=== PATIENT | male | born 1965 | race Caucasian/White ===

== ENCOUNTER → 2017-11-21 | Outpatient (CLI) | payer BC ==
--- NOTE | 2017-11-21 12:21 | RADIOLOGY REPORT (SQ) ---
EXAM DESCRIPTION: MRI PELVIS COMBO COMPLETED DATE/TIME: 11/21/2017 REASON FOR STUDY: DISEASE OF ANUS AND RECTUM (K62.9) K62.9 DISEASE OF ANUS AND RECTUM, UNSPECIFIED COMPARISON: Recent colonoscopy and biopsy results. TECHNIQUE: Sagittal, axial oblique, and coronal oblique T2-weighted images of the pelvis without con trast centered on the rectum. Axial images of the pelvis. Post contrast T1 sequences also performed . FINDINGS: BRIEF DESCRIPTION OF MASS: Polypoid convoluted appearance, cerebriform configuration. Rel atively well-circumscribed. Filling and mildly distending the lumen of the lower rectum. LOCATION OF TUMOR: low. 0-5 cm. DISTANCE FROM ANORECTAL JUNCTION TO LOWER POLE OF TUMOR: 0 cm. CIRCUMFERENTIAL LOCATION OF TUMOR: Lesion probably arises in the posterior rectum with broad stalk sp anning 5 - 7 o'clock. Fluid surrounds the remainder of the lesion, otherwise it from the bowel wall. LENGTH OF TUMOR: 4.5 cm. DISTANCE BETWEEN TUMOR AND MESORECTAL FASCIA: Limited assessment in the low rectum. No mesorectal fa scia involvement along the upper portion of the tumor. PATHOLOGIC LYMPH NODES: No. DESCRIPTION: Not applicable. EXTRAMURAL/VASCULAR INVASION: No. DESCRIPTION: Not applicable. INVASION OF PELVIC STRUCTURES: No. DESCRIPTION: Not applicable. IMPRESSION: Polypoid low rectal mass without extraluminal extension or regional pathologic lymph nod es. 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 TECHNICAL DOCUMENTATION: JOB ID: [id number] [employer]- All Rights Reserved Reading location - IP/workstation name: [email or web address]
== END ==
LOC: RAD 08:14
PROVIDERS: ATTEND Surgery
DX: K62.9 Disease of anus and rectum, unspecified (principal)
CPT/HCPCS: 82565; 72197; A9576

== ENCOUNTER 2017-12-28 08:15 | Day surgery (SDC) | payer BC ==
--- NOTE | 2017-12-21 10:44 | RADIOLOGY REPORT (SQ) ---
EXAM DESCRIPTION: CHEST PA/LATERAL COMPLETED DATE/TIME: 12/21/2017 10:37 am REASON FOR STUDY: PRE-OP COMPARISON: 08/02/2007 EXAM PARAMETERS: NUMBER OF VIEWS: two views TECHNIQUE: Digital Frontal and Lateral radiographic views of the chest acquired. RADIATION DOSE: NA LIMITATIONS: none FINDINGS: LUNGS AND PLEURA: No opacities, masses or pneumothorax. No pleural effusion. MEDIASTINUM AND HILAR STRUCTURES: No masses or contour abnormalities. HEART AND VASCULAR STRUCTURES: Heart normal size. No evidence for failure. BONES: No acute findings. HARDWARE: None in the chest. OTHER: No other significant finding. IMPRESSION: NO SIGNIFICANT RADIOGRAPHIC FINDING IN THE CHEST. TECHNICAL DOCUMENTATION: JOB ID: [id number] [employer]- All Rights Reserved Reading location - IP/workstation name: [email or web address]
[2017-12-21 10:52] LABS: HEMATOCRIT 44.6 % (37.9-51.0); HEMOGLOBIN 15.3 g/dL (13.5-17.0); MEAN CORPUSCULAR HEMOGLOBIN 33.5 pg (27.0-33.4); MEAN CORPUSCULAR HGB CONC 34.3 g/dL (32.0-36.0); MEAN CORPUSCULAR VOLUME 98 fl (80-97); PLATELET COUNT 192 10^3/uL (150-450); RED BLOOD COUNT 4.57 10^6/uL (4.35-5.55); WHITE BLOOD COUNT 6.6 10^3/uL (4.0-10.5)
[2017-12-21 11:20] LABS: ANION GAP 11 (5-19); BLOOD UREA NITROGEN 9 mg/dL (7-20); CALCIUM 9.6 mg/dL (8.4-10.2); CARBON DIOXIDE 28 mmol/L (22-30); CHLORIDE 103 mmol/L (98-107); GLUCOSE 85 mg/dL (75-110); POTASSIUM 4.8 mmol/L (3.6-5.0); SODIUM 141.7 mmol/L (137-145)
--- NOTE | 2017-12-21 13:03 | EKG REPORT ---
SEVERITY:- NORMAL ECG - SINUS RHYTHM : Confirmed by: Steve Gimenez MD 21-Dec-2017 13:02:23
[~2017-12-28 08:15] MED LIST: ACETAMINOPHEN 1,000 MG/100 ML RTUPB IV ONE; BUPIVACAINE HCL 0.25% /EPINEPHRINE INJ/PF 30 ML SDV ONE; BUPIVACAINE HCL 0.5 % INJ/PF 30 ML SDV ONE; CEFOXITIN SODIUM 2 GM in DEXTROSE 5%-WATER 100 ML IV PRN; DEXAMETHASONE SOD PHOSPHATE INJ 4 MG/1 ML VIAL ONE; FENTANYL CITRATE INJ/PF 250 MCG/5 ML AMPULE ONE; LACTATED RINGERS 1000 ML IV PRN; LIDOCAINE 0.5% INJ-PF (5 MG/ML) 50 ML SDV SUBCUT PRN; LIDOCAINE 2% INJ-PF (100 MG/5 ML) SYRINGE ONE; LIDOCAINE 2% JELLY 30 ML TUBE ONE; MIDAZOLAM 2 MG/2 ML INJ ONE; ONDANSETRON HCL INJ/PF 4 MG/2 ML SDV ONE; PROPOFOL INJ 200 MG/20 ML VIAL IV ONE
[2017-12-28] MEDS ORDERED: ALBUTEROL SULFATE 0.083% NEB 2.5 MG/3 ML AMPUL NEB ONE (09:10)
[2017-12-28] MEDS ORDERED: FENTANYL CITRATE INJ/PF 100 MCG/2 ML AMPUL IV PRN ×3 (11:41)
[2017-12-28] MEDS ORDERED: PROMETHAZINE HCL INJ 25 MG/1 ML VIAL IV PRN ×2 (11:41)
[2017-12-28] MEDS ORDERED: MORPHINE SULFATE 10 MG/ML INJ IV PRN ×2 (11:41→15:51)
[2017-12-28] MEDS ORDERED: MEPERIDINE HCL/PF INJ 25 MG/1 ML DISP.SYRIN IV PRN (11:41)
[2017-12-28] MEDS ORDERED: ONDANSETRON HCL INJ/PF 4 MG/2 ML SDV IV PRN ×2 (11:41→15:51)
[2017-12-28] MEDS ORDERED: DIPHENHYDRAMINE HCL 50 MG/ML VIAL IV PRN (11:41)
[2017-12-28] MEDS ORDERED: SUGAMMADEX SODIUM 200 MG/2 ML SDV IV ONE (13:20)
[2017-12-28] MEDS ORDERED: VECURONIUM BROMIDE INJ 10 MG VIAL IV ONE (14:46)
[2017-12-28] MEDS ORDERED: SUCCINYLCHOLINE CHLORIDE INJ 200 MG/10 ML VIAL ONE (14:49)
[2017-12-28] MEDS ORDERED: DEXTROSE 5%-LACTATED RINGERS 1,000 ML IV PRN (15:51)
[2017-12-28] MEDS ORDERED: HYDROCODONE BIT/HOMATROPINE 5-1.5 MG TABLET PO ONE (16:01)
[2017-12-28] MEDS ORDERED: PSYLLIUM SEED-SF 5.85 GM PACKET PO ONE (16:02)
--- NOTE | 2017-12-28 16:25 | Operative Report ---
Nonrecallable Operative Report DATE OF SURGERY: 12/28/17 PREOPERATIVE DIAGNOSIS: rectal tumor POSTOPERATIVE DIAGNOSIS: large rectal tumor OPERATION: Robot-assisted laparoscopic transanal minimally invasive excision of rectal tumor SURGEON: WILIAN CRUZ 1ST CARCASS SPLITTER: ZORAIDA SMITH TISSUE REMOVED OR ALTERED: Large rectal tumor, approximately 8 cm COMPLICATIONS: Unable to close the large mucosal defect due to size. ESTIMATED BLOOD LOSS: 200 cc PROCEDURE: Indication for the procedure: This is a 52-year-old male found to have a large rectal tumor extending from approximately the first valve of [place]ig[place] down to the dentate line. Patient was sent to ar for surgical excision. He underwent MRI testing, which confirmed that the tumor appeared to be confined to the mucosa, not extending through the rectal wall or involving the perirectal lymph nodes. Secondary to this, the patient qualified for transanal excision. This is certainly less morbid than abdominoperineal resection (which would have been necessary if this operation were a failure). Drains/implants: None. Procedure in detail: After informed consent was obtained, the patient was brought into the operating room and laid in the lithotomy position. The area of the rectum was prepped and draped in a normal sterile fashion. The robot was brought over the patient. The gel point TAMIS trocar was inserted into the rectum and sutured into place after adequate dilation of the sphincter was performed. The robotic trochars were placed into the gel point device. The robot was then brought over the patient and docked to the trochars. Instruments were inserted, and I assumed my position at the surgeon's console. Attention was turned to the evaluation of the large rectal tumor. The tumor was situated posteriorly. The tumor extended distally to the dentate line. The tumor was marked circumferentially, to ensure a 1 cm margin. Incision was created at the dentate line using electrocautery. The tumor was elevated anteriorly. Dissection was carried down to the perirectal fat. During the dissection, several rectal arteries were identified and cauterized using bipolar cautery. Hemostasis was insured. The tumor was excised from the colon and removed through the gel point device. The tumor was oriented and marked. Sutures marked both the proximal and left lateral margin. The gel point was reattached, the robot was re-docked, and inspection was undertaken. The defect extended from the dentate line up to the first valve of Griggs. Closure of the defect was attempted, however it markedly deformed the first valve of Griggs. I was concerned that it would cause obstructive symptoms. Secondary to this, the defect was left open. The robot was then undocked, the gel point was removed, and the procedure was concluded. All sponge, instrument, and needle counts were correct 2. Condition: Stable. Zoraida Smith PA-C was scrubbed and present the entirety of the procedure. She assisted with all portions of the procedure including insertion of the gel point, docking of the robot, exchanging of the robotic instruments, and removal of the tumor.
[2017-12-28] MEDS: DOCUSATE SODIUM 100 MG CAPSULE PO SCH (18:20)
[2017-12-28] MEDS: PSYLLIUM SEED-SF 5.85 GM PACKET PO SCH (19:21)
[2017-12-28] MEDS: CEFOXITIN SODIUM 2 GM in DEXTROSE 5%-WATER 100 ML IV SCH (21:14)
[2017-12-29 05:28] LABS: ABSOLUTE LYMPHOCYTES (AUTO) 0.8 10^3/uL (0.5-4.7); ABSOLUTE MONOCYTES (AUTO) 0.8 10^3/uL (0.1-1.4); ABSOLUTE NEUT (AUTO) 9.2 10^3/uL (1.7-8.2); BASOPHILS % (AUTO) 0.2 % (0-2); EOSINOPHILS % (AUTO) 0.1 % (0-6); HEMATOCRIT 40.1 % (37.9-51.0); HEMOGLOBIN 13.8 g/dL (13.5-17.0); LYMPHOCYTES % (AUTO) 7.8 % (13-45); MEAN CORPUSCULAR HEMOGLOBIN 33.3 pg (27.0-33.4); MEAN CORPUSCULAR HGB CONC 34.4 g/dL (32.0-36.0); MEAN CORPUSCULAR VOLUME 97 fl (80-97); MONOCYTES % (AUTO) 7.4 % (3-13); PLATELET COUNT 195 10^3/uL (150-450); RED BLOOD COUNT 4.14 10^6/uL (4.35-5.55); SEGMENTED NEUTROPHILS % (AUTO) 84.5 % (42-78); TOTAL CELLS COUNTED % (AUTO) 100 %; WHITE BLOOD COUNT 10.9 10^3/uL (4.0-10.5)
[2017-12-29 05:56] LABS: ALANINE AMINOTRANSFERASE 19 U/L (21-72); ALBUMIN 3.3 g/dL (3.5-5.0); ALKALINE PHOSPHATASE 47 U/L (38-126); ANION GAP 8 (5-19); ASPARTATE AMINO TRANSFERASE 15 U/L (17-59); BILIRUBIN,DIRECT 0.3 mg/dL (0.0-0.4); BILIRUBIN,TOTAL 0.9 mg/dL (0.2-1.3); BLOOD UREA NITROGEN 6 mg/dL (7-20); CALCIUM 8.9 mg/dL (8.4-10.2); CARBON DIOXIDE 27 mmol/L (22-30); CHLORIDE 105 mmol/L (98-107); GLUCOSE 111 mg/dL (75-110); POTASSIUM 4.2 mmol/L (3.6-5.0); SODIUM 139.8 mmol/L (137-145); TOTAL PROTEIN 5.9 g/dL (6.3-8.2)
[2017-12-29 08:01] VITALS: BP 119/62
[2017-12-29] MEDS: CEFOXITIN SODIUM 2 GM in DEXTROSE 5%-WATER 100 ML IV SCH (09:47)
[2017-12-29] MEDS: PSYLLIUM SEED-SF 5.85 GM PACKET PO SCH (09:47)
[2017-12-29] MEDS: DOCUSATE SODIUM 100 MG CAPSULE PO SCH (09:47)
--- NOTE | 2017-12-29 10:49 | PDOC DISCHARGE SUMMARY ---
General - Admit/Disc Date/PCP Admission Date/Primary Care Provider: MCKENNA FERNANDEZ Discharge Date: 12/29/17 - Discharge Diagnosis (1) Rectal tumor Is this a current diagnosis for this admission?: Yes - Additional Information Discharge Diet: As Tolerated Discharge Activity: Balance Activity w/Rest Home Medications: No Home Medications 12/21/17 History of Present Illness History of Present Illness: MARIE BRUNSON JR is a 52 year old male with a large posterior rectal tumor extending from the dentate line to the first valve of [place]. The patient presented for resection of this tumor. The patient was admitted to the hospital and underwent robotic assisted transanal tumor resection. The patient was taken to the floor in stable condition. Hospital Course Hospital Course: Patient went to the floor in stable condition. The patient did very well. The patient began tolerating a diet, ambulating, passing flatus, and urinating without difficulty. By 12/29/2017 the patient was doing well. The patient was not requiring any pain medication. Patient was completely afebrile, and his blood pressure/heart rate were normal. At this time it was felt that he had reached maximal hospital benefit and was fit for discharge. Physical Exam Vital Signs: Temp Pulse Resp BP Pulse Ox 99.0 F 76 15 119/62 97 12/29/17 08:01 12/29/17 08:01 12/29/17 08:01 12/29/17 08:01 12/29/17 08:01 Intake & Output 12/28/17 12/29/17 12/30/17 06:59 06:59 06:59 Intake Total 2600 Output Total 555 Balance 2045 Weight 62.6 kg Results Laboratory Results: 12/29/17 04:13 12/29/17 04:13 12/29/17 12/29/17 04:13 04:13 WBC 10.9 H RBC 4.14 L Hgb 13.8 Hct 40.1 MCV 97 MCH 33.3 MCHC 34.4 RDW 13.0 Plt Count 195 Seg Neutrophils % 84.5 H Lymphocytes % 7.8 L Monocytes % 7.4 Eosinophils % 0.1 Basophils % 0.2 Absolute Neutrophils 9.2 H Absolute Lymphocytes 0.8 Absolute Monocytes 0.8 Absolute Eosinophils 0.0 Absolute Basophils 0.0 Sodium 139.8 Potassium 4.2 Chloride 105 Carbon Dioxide 27 Anion Gap 8 BUN 6 L Creatinine 0.71 Est GFR ( Amer) > 60 Est GFR (Non-Af Amer) > 60 Glucose 111 H Calcium 8.9 Total Bilirubin 0.9 AST 15 L ALT 19 L Alkaline Phosphatase 47 Total Protein 5.9 L Albumin 3.3 L Impressions: Chest X-Ray 12/21/17 10:05 IMPRESSION: NO SIGNIFICANT RADIOGRAPHIC FINDING IN THE CHEST. Qualifiers - * PATIENT BEING DISCHARGED WITH ANY OF THE FOLLOWING DIAGNOSIS: No Plan Discharge Plan: Discharge home. Diet as tolerated. Activity as tolerated. Follow-up with me in 7-10 days. OTC Tylenol and Advil for pain. Call the office with any questions or concerns. Time Spent: Less than 30 Minutes
== END 2017-12-29 12:53 | disposition home or self-care (01) ==
LOC: OROUT 08:15 → 4N 17:25 → OROUT 12-29 12:53
PROVIDERS: ATTEND Surgery
DX: C20 Malignant neoplasm of rectum (principal); F17.210 Nicotine dependence, cigarettes, uncomplicated; Z01.818 Encounter for other preprocedural examination
CPT/HCPCS: 0184T; S2900; 36415; 71046; 80048; 80053; 85025; 85027; 86850; 86900; 86901; 88307; 902; 93005; 93010; J0131; J0330; J0694; J1100; J2001; J2250; J2405; J2704; J3010; J3490; J7120

== ENCOUNTER 2018-01-05 23:56 | Inpatient (IN) | payer BC ==
[2018-01-06] MEDS ORDERED: NORMAL SALINE 250 ML IV PRN (00:01)
--- NOTE | 2018-01-06 00:04 | ER Document Report ---
ED General - General Stated Complaint: BLEEDING RECTUM Time Seen by Provider: 01/06/18 00:01 Notes: Patient is a 52-year-old male who had a large rectal tumor resection 9 days ago who presents with bright red blood per rectum apparently for approximately last 12 hours. He was brought in by EMS for the the bleeding. Was apparently hypotensive in the field. Patient denies any symptoms other than brisk bleeding from his rectum. He denies any use of any anticoagulation. He has not had any bleeding up until the past 12 hours. He has not notified his surgeon regarding today's events. He denies any abdominal pain. No fever or constitutional symptoms. Nothing improves or worsens his symptoms. TRAVEL OUTSIDE OF THE [place] IN LAST 30 DAYS: No - Related Data Allergies/Adverse Reactions: No Known Allergies Allergy (Verified 12/28/17 08:48) Past Medical History - General Information source: Patient - Social History Smoking Status: Current Every Day Smoker Frequency of alcohol use: None Drug Abuse: None Lives with: Alone Family History: Reviewed & Not Pertinent - Past Medical History Cardiac Medical History: Denies: Hx Coronary Artery Disease, Hx Heart Attack, Hx Hypertension Pulmonary Medical History: Reports: Hx Pneumonia - WALKING PNA CHILD Denies: Hx Asthma, Hx Bronchitis, Hx COPD Neurological Medical History: Denies: Hx Cerebrovascular Accident, Hx Seizures Musculoskeletal Medical History: Denies Hx Arthritis - Immunizations Hx Diphtheria, Pertussis, Tetanus Vaccination: No Review of Systems - Review of Systems Notes: Constitutional: Negative for fever. HENT: Negative for sore throat. Eyes: Negative for visual changes. Cardiovascular: Negative for chest pain. Respiratory: Negative for shortness of breath. Gastrointestinal: Positive for bright red blood per rectum. Genitourinary: Negative for dysuria. Musculoskeletal: Negative for back pain. Skin: Negative for rash. Neurological: Negative for headaches, weakness or numbness. 10 point ROS negative except as marked above and in HPI. Physical Exam - Vital signs Vitals: Resp Pulse Ox 12 100 01/06/18 00:09 01/06/18 00:09 Interpretation: Hypotensive Notes: PHYSICAL EXAMINATION: GENERAL: Mild pallor, alert, oriented, appears in no overt distress HEAD: Atraumatic, normocephalic. EYES: Pupils equal round and reactive to light, extraocular movements intact, sclera anicteric, conjunctiva are normal. ENT: nares patent, oropharynx clear without exudates. Mildly dry mucous membranes. NECK: Normal range of motion, supple without lymphadenopathy LUNGS: Breath sounds clear to auscultation bilaterally and equal. No wheezes rales or rhonchi. HEART: Regular rate and rhythm without murmurs ABDOMEN: Soft, nontender, normoactive bowel sounds. No guarding, no rebound. No masses appreciated. Rectal: Large, bright red blood clots in between the buttocks, there is active bright red bleeding from the anus. EXTREMITIES: Normal range of motion, no pitting or edema. No cyanosis. NEUROLOGICAL: No focal neurological deficits. Moves all extremities spontaneously and on command. PSYCH: Normal mood, normal affect. SKIN: Warm, mild pallor Course - Re-evaluation Re-evalutation: 01/06/18 00:02 Patient presents with brisk right red per rectum after having a tumor resection from his colon by Dr. Diaz 9 days ago. Patient was hypotensive to 70s systolic in the field. Patient was given 1 g of tranexamic acid in the field by EMS on my order. The patient currently has a systolic blood pressure of 109. The patient will be given 2 units of uncrossed matched blood given his hypotension and brisk nature of what appears to be arterial bleeding. Labs will be sent. I have contacted Dr. Diaz and asked him to evaluate the patient. 01/06/18 01:01 Patient's hemoglobin is 9.8 although anticipate that it is far lower than this in actuality given the ongoing brisk nature of his bleed. He is continuing to bleed, going to the operating room with Dr. Diaz. - Vital Signs Vital signs: Temp Pulse Resp BP Pulse Ox 98.3 F 14 85/51 L 100 01/06/18 00:11 01/06/18 00:46 01/06/18 00:46 01/06/18 00:46 - Laboratory Result Diagrams: 01/05/18 23:21 01/05/18 23:21 Laboratory results interpreted by me: 01/05/18 01/05/18 01/06/18 23:21 23:21 00:05 RBC 2.91 L Hgb 9.8 L Hct 28.5 L MCV 98 H MCH 33.7 H Sodium 134.1 L Glucose 175 H Crossmatch See Detail Discharge - Discharge Clinical Impression: Rectal arterial hemorrhage Hypotension Qualifiers: Hypotension type: unspecified hypotension type Qualified Code(s): I95.9 - Hypotension, unspecified Condition: Fair Admitting Provider: Surgicalist Unit Admitted: OR Referrals: NATALYA COLON FNP [Primary Care Provider] - Follow up as needed
[2018-01-06 00:25] LABS: ABSOLUTE BASOPHILS # (AUTO) 0.1 10^3/uL (0.0-0.2); ABSOLUTE EOSINOPHILS # (AUTO) 0.2 10^3/uL (0.0-0.6); ABSOLUTE LYMPHOCYTES (AUTO) 2.2 10^3/uL (0.5-4.7); ABSOLUTE MONOCYTES (AUTO) 0.8 10^3/uL (0.1-1.4); ABSOLUTE NEUT (AUTO) 4.7 10^3/uL (1.7-8.2); BASOPHILS % (AUTO) 0.9 % (0-2); HEMATOCRIT 28.5 % (37.9-51.0); HEMOGLOBIN 9.8 g/dL (13.5-17.0); LYMPHOCYTES % (AUTO) 27.9 % (13-45); MEAN CORPUSCULAR HEMOGLOBIN 33.7 pg (27.0-33.4); MEAN CORPUSCULAR HGB CONC 34.4 g/dL (32.0-36.0); MEAN CORPUSCULAR VOLUME 98 fl (80-97); MONOCYTES % (AUTO) 10.5 % (3-13); PLATELET COUNT 312 10^3/uL (150-450); RED BLOOD COUNT 2.91 10^6/uL (4.35-5.55); RED CELL DISTRIBUTION WIDTH 13.1 % (11.5-14.0); SEGMENTED NEUTROPHILS % (AUTO) 58.7 % (42-78); TOTAL CELLS COUNTED % (AUTO) 100 %
[2018-01-06 00:41] LABS: ANION GAP 9 (5-19); BLOOD UREA NITROGEN 11 mg/dL (7-20); CALCIUM 8.4 mg/dL (8.4-10.2); CARBON DIOXIDE 23 mmol/L (22-30); CHLORIDE 102 mmol/L (98-107); GLUCOSE 175 mg/dL (75-110); POTASSIUM 3.8 mmol/L (3.6-5.0); SODIUM 134.1 mmol/L (137-145)
[2018-01-06] MEDS ORDERED: PROPOFOL INJ 200 MG/20 ML VIAL IV ONE (00:58)
--- NOTE | 2018-01-06 02:29 | PDOC H&P ---
History of Present Illness Admission Date/PCP: 01/06/18 01:18 MCKENNA FERNANDEZ Patient complains of: Rectal bleeding History of Present Illness: MARIE BRUNSON JR is a 52 year old male approximately 1 week status post transanal excision of a rectal tumor. The patient reports that since 12 noon today he has experienced bright red blood per rectum. It occurred on multiple times, and the patient was transported via EMS to the hospital. The patient reports weakness, palpitations, dizziness. Patient also reports rectal pressure. He reports that this began with having a bowel movement and straining. Past Medical History Cardiac Medical History: Denies: Coronary Artery Disease, Myocardial Infarction, Hypertension Pulmonary Medical History: Reports: Pneumonia - WALKING PNA CHILD Denies: Asthma, Bronchitis, Chronic Obstructive Pulmonary Disease (COPD) Neurological Medical History: Denies: Seizures Musculoskeltal Medical History: Denies: Arthritis Hematology: Denies: Anemia Past Surgical History Past Surgical History: Reports: Other - Transanal excision of a rectal tumor Social History Lives with: Alone Smoking Status: Current Every Day Smoker Frequency of Alcohol Use: Heavy Hx Recreational Drug Use: No Hx Prescription Drug Abuse: No Family History Family History: Reviewed & Not Pertinent Parental Family History Reviewed: Yes Children Family History Reviewed: Yes Sibling(s) Family History Reviewed.: Yes Medication/Allergy Home Medications: No Home Medications 12/21/17 Allergies/Adverse Reactions: No Known Allergies Allergy (Verified 12/28/17 08:48) Review of Systems Constitutional: PRESENT: fatigue, weakness. ABSENT: anorexia, chills, fever(s) Cardiovascular: PRESENT: palpitations. ABSENT: chest pain Respiratory: ABSENT: cough Gastrointestinal: PRESENT: constipation, hematochezia. ABSENT: abdominal pain, bloating, nausea, vomiting Genitourinary: ABSENT: dysuria Musculoskeletal: ABSENT: back pain Integumentary: ABSENT: pruritus, rash Neurological: PRESENT: dizziness. ABSENT: confusion, numbness, paresthesias Psychiatric: ABSENT: anxiety, depression Endocrine: ABSENT: cold intolerance, heat intolerance Hematologic/Lymphatic: ABSENT: easy bleeding, easy bruising Physical Exam Vital Signs: Temp Pulse Resp BP Pulse Ox 98.0 F 13 103/58 L 100 01/06/18 01:55 01/06/18 01:56 01/06/18 01:56 01/06/18 01:56 Intake & Output 09/01/05/18 01/06/18 06:59 06:59 06:59 Weight 61.235 kg General appearance: PRESENT: mild distress Head exam: PRESENT: atraumatic, normocephalic Eye exam: PRESENT: EOMI, PERRLA. ABSENT: scleral icterus Mouth exam: PRESENT: moist, neck supple Teeth exam: PRESENT: poor dentation Respiratory exam: PRESENT: clear to auscultation barrera. ABSENT: chest wall tenderness, rales, retraction, rhonchi Cardiovascular exam: PRESENT: tachycardia Pulses: PRESENT: normal radial pulses Vascular exam: PRESENT: pallor GI/Abdominal exam: PRESENT: soft. ABSENT: distended, firm, guarding, hernia, tenderness Rectal exam: PRESENT: normal rectal tone, other - Bright red blood per rectum with clots. Extremities exam: ABSENT: clubbing, pedal edema Musculoskeletal exam: ABSENT: deformity Neurological exam: PRESENT: alert, awake, oriented to person, oriented to place , oriented to time, oriented to situation, CN II-XII grossly intact. ABSENT: motor sensory deficit Psychiatric exam: ABSENT: agitated, anxious, depressed Focused psych exam: ABSENT: delusional Skin exam: ABSENT: cyanosis, erythema, jaundice Assessment & Plan - Diagnosis (1) Rectal arterial hemorrhage Is this a current diagnosis for this admission?: Yes - Plan Summary Plan Summary: This is a 52-year-old male status post transanal excision of a rectal tumor. The patient began to experience bright red rectal bleeding today at approximately 12 noon. The bleeding did not stop, and the patient presented for evaluation. On exam in the emergency department no bleeding source could be identified, however there was a copious amount of red blood in the rectum. Secondary to this, rectal exam under anesthesia was felt to be prudent. I have discussed the risks and benefits with the patient. We will proceed with rectal examination under anesthesia, possible colonoscopy. Informed consent obtained, and all questions answered.
[2018-01-06] MEDS ORDERED: FENTANYL CITRATE INJ/PF 100 MCG/2 ML AMPUL ONE (02:34)
[2018-01-06] MEDS ORDERED: MIDAZOLAM 2 MG/2 ML INJ ONE (02:34)
[2018-01-06] MEDS ORDERED: BUPIVACAINE HCL/DEX-WATER/PF 15 MG/2 ML AMPULE ONE (02:35)
[2018-01-06] MEDS ORDERED: MORPHINE SULFATE 10 MG/ML INJ IV PRN (03:14)
[2018-01-06] MEDS ORDERED: PROMETHAZINE HCL INJ 25 MG/1 ML VIAL IV PRN (03:14)
[2018-01-06] MEDS ORDERED: ONDANSETRON HCL INJ/PF 4 MG/2 ML SDV IV PRN ×2 (03:14→04:12)
[2018-01-06] MEDS ORDERED: FENTANYL CITRATE INJ/PF 100 MCG/2 ML AMPUL IV PRN ×3 (03:14)
[2018-01-06] MEDS ORDERED: DIPHENHYDRAMINE HCL 50 MG/ML VIAL IV PRN (03:14)
[2018-01-06] MEDS ORDERED: DEXTROSE 40% GEL 15 GM TUBE PO PRN ×2 (04:12)
[2018-01-06] MEDS ORDERED: DEXTROSE 50%-WATER 25 GM/50 ML DISP.SYRIN IV PRN ×2 (04:12)
[2018-01-06] MEDS ORDERED: GLUCAGON,HUMAN RECOMB 1 MG INJ SUBCUT PRN (04:12)
[2018-01-06] MEDS ORDERED: DEXTROSE 5%-LACTATED RINGERS 1,000 ML IV PRN (04:12)
[2018-01-06 06:25] LABS: ABSOLUTE BASOPHILS # (AUTO) 0.1 10^3/uL (0.0-0.2); ABSOLUTE EOSINOPHILS # (AUTO) 0.1 10^3/uL (0.0-0.6); ABSOLUTE LYMPHOCYTES (AUTO) 1.7 10^3/uL (0.5-4.7); ABSOLUTE MONOCYTES (AUTO) 0.8 10^3/uL (0.1-1.4); ABSOLUTE NEUT (AUTO) 6.7 10^3/uL (1.7-8.2); BASOPHILS % (AUTO) 0.6 % (0-2); EOSINOPHILS % (AUTO) 0.9 % (0-6); HEMATOCRIT 27.7 % (37.9-51.0); HEMOGLOBIN 9.6 g/dL (13.5-17.0); LYMPHOCYTES % (AUTO) 18.6 % (13-45); MEAN CORPUSCULAR HEMOGLOBIN 31.8 pg (27.0-33.4); MEAN CORPUSCULAR HGB CONC 34.5 g/dL (32.0-36.0); MONOCYTES % (AUTO) 8.4 % (3-13); PLATELET COUNT 196 10^3/uL (150-450); RED BLOOD COUNT 3.01 10^6/uL (4.35-5.55); SEGMENTED NEUTROPHILS % (AUTO) 71.5 % (42-78); TOTAL CELLS COUNTED % (AUTO) 100 %; WHITE BLOOD COUNT 9.4 10^3/uL (4.0-10.5)
[2018-01-06 06:27] LABS: MEAN CORPUSCULAR VOLUME 92 fl (80-97)
[2018-01-06 06:40] LABS: ALANINE AMINOTRANSFERASE 21 U/L (21-72); ALBUMIN 2.2 g/dL (3.5-5.0); ALKALINE PHOSPHATASE 39 U/L (38-126); ASPARTATE AMINO TRANSFERASE 12 U/L (17-59); BILIRUBIN,DIRECT 0.4 mg/dL (0.0-0.4); BILIRUBIN,TOTAL 0.7 mg/dL (0.2-1.3); BLOOD UREA NITROGEN 10 mg/dL (7-20); CALCIUM 7.4 mg/dL (8.4-10.2); CARBON DIOXIDE 23 mmol/L (22-30); CHLORIDE 110 mmol/L (98-107); GLUCOSE 91 mg/dL (75-110); POTASSIUM 4.6 mmol/L (3.6-5.0); SODIUM 135.9 mmol/L (137-145); TOTAL PROTEIN 4.4 g/dL (6.3-8.2)
[2018-01-06 06:59] LABS: ANION GAP 3 (5-19)
[2018-01-06] MEDS: DOCUSATE SODIUM 100 MG CAPSULE PO SCH ×3 (09:08→18:49)
--- NOTE | 2018-01-06 10:45 | Operative Report ---
Nonrecallable Operative Report DATE OF SURGERY: 01/06/18 PREOPERATIVE DIAGNOSIS: Lower GI bleeding POSTOPERATIVE DIAGNOSIS: 1. Massive lower GI bleeding with large amount of clots within the colon. No active bleeding site identified. Surgical site appeared to be healing well with no signs of active blood loss. 2. Multiple, large colon polyps throughout the colon extending from the rectum to the descending colon. Greater than 20 identified. At least 3 very large, pedunculated polyps noted. OPERATION: Colonoscopy to the cecum SURGEON: WILIAN CRUZ ANESTHESIA: Spinal TISSUE REMOVED OR ALTERED: None COMPLICATIONS: Large amount of old blood within the colon. No active bleeding identified. ESTIMATED BLOOD LOSS: Large amount of old blood. PROCEDURE: Drains/implants: Surgifoam in the rectum. Procedure in detail: After informed consent was obtained from the patient, he was brought into the operating room. Spinal anesthesia was administered. The patient was placed in lithotomy position. The colonoscope was inserted into the rectum. A large amount of old blood with clots were present. This was irrigated copiously and suctioned to remove all clot. Once this was adequately performed, to assist with visualization, the rectum was examined. No active bleeding could be identified at the surgical site. The mucosal edges were without obvious visible vessel or active bleeding. Copious irrigation was used to elicit any bleeding. No bleeding was identified. Once this was confirmed, attention was turned to performing of the remainder of the colonoscopy. The colonoscope was inserted up the sigmoid colon, descending colon, across the transverse colon, down the ascending colon, and into the cecum. He had not undergone a bowel prep, and the cecum had retained stool within it. This did inhibit some of our visualization, however copious irrigation was used and a large portion of the mucosa was visualized. The scope was withdrawn, circumferentially noting the mucosa. The scope was withdrawn past the ascending colon, transverse colon, descending colon, sigmoid colon, and into the rectum. There were multiple moderate sized polyps found throughout the colon, I estimate 40-50. There were 3 separate large pedunculated polyps, 2 within the descending/sigmoid colon and one within the ascending colon. These were not removed due to the patient's relative instability from blood loss. As the scope was withdrawn, no active bleeding could be identified throughout the colon. Once the rectum was reached, further irrigation was performed. Still, no active bleeding could be identified. A retroflexion maneuver was performed. This did not reveal any obvious rectal bleeding. Once this was confirmed, the scope was removed. Surgifoam was packed into the rectum to aid with hemostasis. At this time, the procedure was concluded. All sponge, instrument, and needle counts were correct 2. Condition: Fair.
--- NOTE | 2018-01-06 13:37 | Progress Note ---
Provider Note Provider Note: Patient seen today. His was present. Discussed results of colonoscopy including multiple polyps identified. Discussed repeat colonoscopies versus colon resection with the patient. He and his wish to think about this decision. The patient reports no further bleeding. I will advance his diet today. The patient has been taking Aleve at home for pain twice per day. I recommended he take only Tylenol. Patient has expressed good understanding. I will reevaluate him tomorrow for possible discharge.
[2018-01-06] MEDS ORDERED: ACETAMINOPHEN 325 MG TABLET PO PRN (20:58)
[2018-01-07 05:42] LABS: HEMATOCRIT 24.6 % (37.9-51.0); HEMOGLOBIN 8.5 g/dL (13.5-17.0); MEAN CORPUSCULAR HEMOGLOBIN 31.7 pg (27.0-33.4); MEAN CORPUSCULAR HGB CONC 34.4 g/dL (32.0-36.0); MEAN CORPUSCULAR VOLUME 92 fl (80-97); PLATELET COUNT 157 10^3/uL (150-450); RED BLOOD COUNT 2.67 10^6/uL (4.35-5.55); RED CELL DISTRIBUTION WIDTH 15.6 % (11.5-14.0); WHITE BLOOD COUNT 6.7 10^3/uL (4.0-10.5)
--- NOTE | 2018-01-07 07:20 | PDOC DISCHARGE SUMMARY ---
General - Admit/Disc Date/PCP Admission Date/Primary Care Provider: 01/06/18 01:18 MCKENNA FERNANDEZ Discharge Date: 01/07/18 - Discharge Diagnosis (1) Rectal arterial hemorrhage Is this a current diagnosis for this admission?: Yes - Additional Information Resuscitation Status: Full Code Discharge Diet: As Tolerated Discharge Activity: Balance Activity w/Rest Home Medications: No Home Medications 12/21/17 History of Present Illness History of Present Illness: MARIE BRUNSON JR is a 52 year old male approximately 1 week status post transanal excision of a rectal tumor. The patient reports that since 12 noon today he has experienced bright red blood per rectum. It occurred on multiple times, and the patient was transported via EMS to the hospital. The patient reported weakness, palpitations, dizziness. Patient also reported rectal pressure. He reports that this began with having a bowel movement and straining. He was taking Aleve twice per day at home. Hospital Course Hospital Course: The pt was admitted to the hospital and colonoscopy was performed. A large amount of blood was found within the colon, but no active bleeding was identified. The pt was sent to the floor and no further bleeding was noted. By he was ambulating, tolerating a diet, and there was no bleeding identified. At this time he has reached maximal hospital benefit and is fit for discharge. Physical Exam Vital Signs: Temp Pulse Resp BP Pulse Ox 98.6 F 76 18 100/53 L 100 01/07/18 00:00 01/07/18 00:00 01/07/18 00:00 01/07/18 00:00 01/07/18 00:00 Intake & Output 01/06/18 01/07/18 01/08/18 06:59 06:59 06:59 Intake Total 1100 1736 Balance 1100 1736 Weight 62 kg 64.4 kg Results Laboratory Results: 01/07/18 04:35 01/07/18 04:35 01/07/18 01/07/18 04:35 04:35 WBC 6.7 RBC 2.67 L Hgb 8.5 L Hct 24.6 L MCV 92 MCH 31.7 MCHC 34.4 RDW 15.6 H Plt Count 157 Sodium Cancelled Potassium Cancelled Chloride Cancelled Carbon Dioxide Cancelled Anion Gap Cancelled BUN Cancelled Creatinine Cancelled Est GFR ( Amer) Cancelled Est GFR (Non-Af Amer) Cancelled Glucose Cancelled Calcium Cancelled Total Bilirubin Cancelled AST Cancelled ALT Cancelled Alkaline Phosphatase Cancelled Total Protein Cancelled Albumin Cancelled Qualifiers - * PATIENT BEING DISCHARGED WITH ANY OF THE FOLLOWING DIAGNOSIS: No Plan Discharge Plan: d/c home. diet as tolerated. activity: nonstrenuous. f/u in one week at [facility]. Time Spent: Less than 30 Minutes
[2018-01-07 08:33] VITALS: BP 100/53
== END 2018-01-07 08:15 | disposition home or self-care (01) | DRG 316 ==
LOC: ER 23:56 → EH 01-06 01:18 → 4W 01-06 04:58
PROVIDERS: ADMIT Surgery; ATTEND Surgery
PROC: 0DJD8ZZ Inspection of Lower Intestinal Tract, Via Natural or Artificial Opening Endoscopic (ICD-10-PCS; 2018-01-06)
PROC: 3E1H88Z Irrigation of Lower GI using Irrigating Substance, Via Natural or Artificial Opening Endoscopic (ICD-10-PCS; 2018-01-06)
PROC: 30233N1 Transfusion of Nonautologous Red Blood Cells into Peripheral Vein, Percutaneous Approach (ICD-10-PCS; principal; 2018-01-06 02:00)
DX: R58 Hemorrhage, not elsewhere classified (principal); I95.9 Hypotension, unspecified; K63.5 Polyp of colon; F17.210 Nicotine dependence, cigarettes, uncomplicated; Z98.890 Other specified postprocedural states
CPT/HCPCS: 36415; 36430; 45378; 80048; 80053; 811; 85025; 85027; 86850; 86900; 86901; 86920; 94640; 99285; J2250; J2704; J3010; J3490; P9016

== ENCOUNTER 2018-03-29 10:03 | Day surgery (SDC) | payer BC ==
[~2018-03-29 10:03] MED LIST changes: -ACETAMINOPHEN 1,000 MG/100 ML RTUPB IV ONE; -BUPIVACAINE HCL 0.25% /EPINEPHRINE INJ/PF 30 ML SDV ONE; -BUPIVACAINE HCL 0.5 % INJ/PF 30 ML SDV ONE; -CEFOXITIN SODIUM 2 GM in DEXTROSE 5%-WATER 100 ML IV PRN; -DEXAMETHASONE SOD PHOSPHATE INJ 4 MG/1 ML VIAL ONE; -FENTANYL CITRATE INJ/PF 250 MCG/5 ML AMPULE ONE; -LIDOCAINE 2% INJ-PF (100 MG/5 ML) SYRINGE ONE; -LIDOCAINE 2% JELLY 30 ML TUBE ONE; -MIDAZOLAM 2 MG/2 ML INJ ONE; -ONDANSETRON HCL INJ/PF 4 MG/2 ML SDV ONE; -PROPOFOL INJ 200 MG/20 ML VIAL IV ONE
[2018-03-29] MEDS ORDERED: ALBUTEROL SULFATE 0.083% NEB 2.5 MG/3 ML AMPUL NEB ONE (11:21)
[2018-03-29] MEDS ORDERED: PROPOFOL INJ 200 MG/20 ML VIAL IV ONE (13:34)
[2018-03-29] MEDS ORDERED: ONDANSETRON HCL INJ/PF 4 MG/2 ML SDV IV PRN (14:09)
[2018-03-29] MEDS ORDERED: FENTANYL CITRATE INJ/PF 100 MCG/2 ML AMPUL IV PRN ×3 (14:09)
--- NOTE | 2018-03-29 16:17 | Discharge Summary ---
Discharge Summary (SDC) - Discharge Final Diagnosis: History of rectal cancer. Multiple colon polyps. Date of Surgery: 03/29/18 Discharge Date: 03/29/18 Condition: Stable Forms: ASU Anesthesia D/C Instruction, Discharge POC-Surgical Service Treatment or Instructions: Discharge home. Diet as tolerated. Activity, nonstrenuous. Follow-up with me in 7-10 days. Referrals: NATALYA COLON FNP [Primary Care Provider] - WILIAN CRUZ MD [ACTIVE STAFF] - Discharge Diet: As Tolerated Respiratory Treatments at Home: Deep Breathing/Coughing, Incentive Spirometer Discharge Activity: Balance Activity w/Rest Home Care Assistance: None Needed Report the Following to Your Physician Immediately: Shortness of Breath, Nausea , Vomiting, Increase in Pain, Fever over 101 Degrees, Unusual Bleeding, Redness , Swelling, Warmth
--- NOTE | 2018-03-29 16:26 | Operative Report ---
Nonrecallable Operative Report DATE OF SURGERY: 03/29/18 PREOPERATIVE DIAGNOSIS: 1. History of rectal cancer. 2. Known multiple colon polyps. POSTOPERATIVE DIAGNOSIS: 1. History of rectal cancer. 2. Multiple large colon polyps. 3. No sign of rectal cancer persistence or recurrence. OPERATION: 1. Flexible sigmoidoscopy to approximately 70 cm. 2. Snare polypectomy of multiple large rectal polyps. 3. Hot biopsy multiple small rectal polyps. 4. Cold biopsy of previous surgical site in the rectum. 5. Aubree ink injection of large colon polyp at approximately 15-20 cm. SURGEON: WILIAN CRUZ ANESTHESIA: LMAC TISSUE REMOVED OR ALTERED: 1 multiple colon polyps removed, approximately 40. 2. Random rectal biopsies at previous surgical site COMPLICATIONS: None apparent ESTIMATED BLOOD LOSS: Minimal PROCEDURE: Procedure in detail: After informed consent was obtained, the patient was brought to the operating room laid in the left lateral decubitus position the colonoscope was inserted up the rectum, sigmoid colon, and into the descending colon. The scope was advanced to approximately 70 cm. There were multiple large colon polyps scattered throughout the rectum, sigmoid colon, and descending colon. The scope was then withdrawn, circumferentially noting the mucosa. The prep was very good. The scope was withdrawn down the descending colon. The polyps that were identified in the descending colon were left in situ, secondary to the fact that the patient will undergo total abdominal colectomy in the near future. There was a very large polyp at approximately 15- 20 cm. It was marked with circumferential injection of Aubree ink. The scope was then withdrawn down the rectum. Multiple polyps were identified. Large polyps were removed via hot polypectomy, smaller polyps were removed via hot biopsy forceps. A total of 40 polyps were removed in the rectum and sigmoid colon. In the distal rectum, the previous surgical site was identified. There was no evidence of recurrent adenomatous disease or cancer. Random biopsies were taken at the surgical site. The scope was then removed from the patient, and the procedure was concluded. All sponge, instrument, needle counts were correct x2. Condition: Stable.
[2018-03-29 16:35] VITALS: BP 156/92
== END 2018-03-29 16:16 | disposition home or self-care (01) ==
LOC: OROUT 10:03
PROVIDERS: ATTEND Surgery
DX: Z12.11 Encounter for screening for malignant neoplasm of colon (principal); D12.7 Benign neoplasm of rectosigmoid junction; Z85.048 Personal history of other malignant neoplasm of rectum, rectosigmoid junction, and anus; Z86.010 Personal history of colon polyps; F17.210 Nicotine dependence, cigarettes, uncomplicated; Z08 Encounter for follow-up examination after completed treatment for malignant neoplasm
CPT/HCPCS: 45335; 45338; 45333; 88305 ×2; J2704; 811

== ENCOUNTER 2018-05-16 07:30 | Inpatient (IN) | payer BC ==
--- NOTE | 2018-06-07 08:58 | EKG REPORT ---
SEVERITY:- NORMAL ECG - SINUS RHYTHM : Confirmed by: Rosy Hennessy MD 07-Jun-2018 08:57:58
--- NOTE | 2018-06-07 09:52 | RADIOLOGY REPORT (SQ) ---
EXAM DESCRIPTION: CHEST PA/LATERAL COMPLETED DATE/TIME: 06/07/2018 9:34 am REASON FOR STUDY: SURGICAL PRE OP COMPARISON: 08/02/2007 EXAM PARAMETERS: NUMBER OF VIEWS: two views TECHNIQUE: Digital Frontal and Lateral radiographic views of the chest acquired. RADIATION DOSE: NA LIMITATIONS: none FINDINGS: LUNGS AND PLEURA: Scarring in the lung apices. There is hyperexpansion. No consolidation or effusions. No pneumothorax. MEDIASTINUM AND HILAR STRUCTURES: No masses or contour abnormalities. HEART AND VASCULAR STRUCTURES: Heart normal size. No evidence for failure. BONES: No acute findings. HARDWARE: None in the chest. OTHER: No other significant finding. IMPRESSION: Hyperexpansion. Scarring in the apices. No acute findings. TECHNICAL DOCUMENTATION: JOB ID: [id number] [employer]- All Rights Reserved Reading location - IP/workstation name: [email or web address]
[2018-06-07 09:58] LABS: HEMATOCRIT 42.7 % (37.9-51.0); HEMOGLOBIN 14.4 g/dL (13.5-17.0); MEAN CORPUSCULAR HEMOGLOBIN 29.3 pg (27.0-33.4); MEAN CORPUSCULAR HGB CONC 33.7 g/dL (32.0-36.0); MEAN CORPUSCULAR VOLUME 87 fl (80-97); PLATELET COUNT 214 10^3/uL (150-450); RED CELL DISTRIBUTION WIDTH 18.1 % (11.5-14.0); WHITE BLOOD COUNT 7.1 10^3/uL (4.0-10.5)
[2018-06-07 10:26] LABS: ANION GAP 10 (5-19); BLOOD UREA NITROGEN 10 mg/dL (7-20); CALCIUM 9.5 mg/dL (8.4-10.2); CARBON DIOXIDE 27 mmol/L (22-30); CHLORIDE 103 mmol/L (98-107); GLUCOSE 89 mg/dL (75-110)
[2018-06-14] MEDS ORDERED: LACTATED RINGERS 1000 ML IV PRN (05:00)
[2018-06-14] MEDS ORDERED: IBUPROFEN 800 MG in NORMAL SALINE 250 ML IV PRN (05:00)
[2018-06-14] MEDS ORDERED: LIDOCAINE 0.5% INJ-PF (5 MG/ML) 50 ML SDV SUBCUT PRN (05:00)
[2018-06-14] MEDS ORDERED: CEFOXITIN SODIUM 2 GM in DEXTROSE 5%-WATER 100 ML IV PRN (05:00)
[2018-06-14] MEDS ORDERED: EPHEDRINE SULFATE INJ 50 MG/1 ML AMPULE ONE (07:00)
[2018-06-14] MEDS ORDERED: HYDROMORPHONE HCL INJ/PF 2 MG/ML AMPULE ONE (07:00)
[2018-06-14] MEDS ORDERED: ACETAMINOPHEN 1,000 MG/100 ML RTUPB IV ONE (07:00)
[2018-06-14] MEDS ORDERED: FENTANYL CITRATE INJ/PF 250 MCG/5 ML AMPULE ONE (07:00)
[2018-06-14] MEDS ORDERED: PROPOFOL INJ 200 MG/20 ML VIAL IV ONE (07:00)
[2018-06-14] MEDS ORDERED: DEXMEDETOMIDINE INJ 80 MCG/20 ML VIAL IV ONE (07:00)
[2018-06-14] MEDS ORDERED: MIDAZOLAM 2 MG/2 ML INJ ONE (07:00)
[2018-06-14] MEDS ORDERED: BUPIVACAINE HCL 0.25 % INJ/PF (2.5 MG/1 ML) 30 ML VIAL ONE (07:26)
[2018-06-14] MEDS ORDERED: MORPHINE SULFATE 10 MG/ML INJ IV PRN ×2 (11:32→12:49)
[2018-06-14] MEDS ORDERED: PROMETHAZINE HCL INJ 25 MG/1 ML VIAL IV PRN ×2 (11:32)
[2018-06-14] MEDS ORDERED: ONDANSETRON HCL INJ/PF 4 MG/2 ML SDV IV PRN ×2 (11:32→12:49)
[2018-06-14] MEDS ORDERED: DIPHENHYDRAMINE HCL 50 MG/ML VIAL IV PRN (11:32)
[2018-06-14] MEDS ORDERED: FENTANYL CITRATE INJ/PF 100 MCG/2 ML AMPUL IV PRN ×3 (11:32)
[2018-06-14] MEDS ORDERED: MEPERIDINE HCL/PF INJ 25 MG/1 ML DISP.SYRIN IV PRN (11:32)
[2018-06-14] MEDS ORDERED: ONDANSETRON HCL INJ/PF 4 MG/2 ML SDV ONE (11:38)
[2018-06-14] MEDS ORDERED: SUCCINYLCHOLINE CHLORIDE INJ 200 MG/10 ML VIAL ONE (11:38)
[2018-06-14] MEDS ORDERED: PHENYLEPHRINE HCL INJ/PF 10 MG/1 ML SDV ONE (11:38)
[2018-06-14] MEDS ORDERED: GLYCOPYRROLATE 1 MG/5 ML SYRINGE ONE (11:38)
[2018-06-14] MEDS ORDERED: METOCLOPRAMIDE HCL INJ/PF 10 MG/2 ML SDV ONE (11:38)
[2018-06-14] MEDS ORDERED: LIDOCAINE 2% INJ-PF (20 MG/ML) 2 ML AMPUL ONE (11:38)
[2018-06-14] MEDS ORDERED: DEXAMETHASONE SOD PHOSPHATE INJ 4 MG/1 ML VIAL ONE (11:38)
[2018-06-14] MEDS ORDERED: ROCURONIUM BROMIDE INJ 50 MG/5 ML VIAL IV ONE (11:38)
[2018-06-14] MEDS ORDERED: SUGAMMADEX SODIUM 200 MG/2 ML SDV IV ONE (12:18)
--- NOTE | 2018-06-14 13:27 | Operative Report ---
Nonrecallable Operative Report DATE OF SURGERY: 06/14/18 PREOPERATIVE DIAGNOSIS: Colonic polyposis not amenable to endoscopic resection. POSTOPERATIVE DIAGNOSIS: Same as above OPERATION: 1. Laparoscopic total abdominal colectomy (including splenic flexure takedown). 2. Handsewn ileorectal anastomosis. 3. Flexible sigmoidoscopy. SURGEON: WILIAN CRUZ 1ST [employer]ERGY CONSERVATION ENGINEER: ZORAIDA SMITH ANESTHESIA: GA TISSUE REMOVED OR ALTERED: Total abdominal colectomy COMPLICATIONS: None apparent ESTIMATED BLOOD LOSS: 100 cc PROCEDURE: Drains/implants: None. Procedure in detail: After informed consent was obtained, the patient was brought into the operating room and laid in the lithotomy position. The abdomen was prepped and draped in a normal sterile fashion. A supraumbilical incision was created with a 15 blade scalpel. Dissection was carried through the subcutaneous tissue using sharp and blunt means. The cicatrix was identified, grasped with a Grace clamp, and retracted upwards. The linea alba fascia was incised sharply. The abdomen was entered sharply. The balloon trocar was inserted, and pneumoperitoneum was achieved. A right lower quadrant 12 mm trocar was then placed under direct laparoscopic visualization. A 5 mm trocar was placed in the left lower quadrant and in the suprapubic midline. A final 5 mm trocar was placed in the right upper quadrant. This was done under direct laparoscopic visualization. The cecum was identified first. It was retracted anteriorly. The ileocolic vessels were taken down using the [place] 60 stapling device. Next in a medial to lateral fashion the mesentery was elevated away from the retroperitoneum. This was done all the way up to the border of the liver. The duodenum was identified and spared from injury. Next, the mesentery was divided up to the level of the middle colic artery. The middle colic artery was identified it was clipped x2 and divided using the harmonic scalpel. Next, the white line of Toldt on the right was mobilized using the harmonic scalpel. The right colon and hepatic flexure were freed and rotated medially. Attention was then turned to freeing of the omentum and mobilization of the splenic flexure. The greater omentum was lifted anteriorly and the omentum was taken off of the transverse colon. The transverse colon was retracted inferiorly and the splenic flexure was taken down using the harmonic scalpel. Great care was taken in the vacinity of the spleen. A small capsular tear was seen at the inferior pole of the spleen at the splenocolic ligament. This was covered with Surgicel and hemostasis was achieved through pressure. The Surgicel was left in place. Next the white line of Toldt was divided superiorly on the left, completing the splenic flexure mobilization. Attention was then turned to mobilization of the sigmoid colon. At the sacral promontory the mesentery was opened, and in a medial to lateral fashion the mesentery was elevated. The ureter was identified and spared along its course. An appropriate level of transection of the upper rectum was then identified. Once the ureter was safely identified, the rectum was divided using the [place] 60 stapling device. The sigmoid colon was then elevated and was freed from the lateral pelvic side wall using a mixture of blunt dissection, sharp dissection, and harmonic scalpel. The ureter was protected throughout this maneuver. The remainder of the white line of Toldt on the left was then divided using the harmonic scalpel. Once this was completed, the only tether left was the mesentery of the descending and sigmoid colon. The remaining colon was lifted anteriorly and the mesentery was divided immediately adjacent to the colon using the harmonic scalpel. Once this was completed pneumoperitoneum was relieved and an extraction point was chosen. A lower midline incision was created between th e pubis and umbilicus approximately 4 cm in length. The medium Hugo wound retractor was inserted into the wound and tightened. The colon was then removed from the patient. The specimen was passed off the field and sent to pathology. Next attention was turned to dilation of the rectum. The patient had a history of rectal cancer surgery. Unfortunately, the rectal dilators would not easily passed through the rectum most likely due to the patient's history of rectal cancer surgery. Secondary to this, a handsewn anastomosis was felt to be necessary. The terminal ileum was brought in apposition to the rectum. A side to side anastomosis was then created between the upper rectum and terminal ileum. The posterior layer was sewn first. It consisted of 3-0 Vicryl pop-off sutures in Lembert fashion. Next enterotomies were created in the upper rectum and terminal ileum. 3-0 PDS suture was then used circumferentially to sew the inner layer of the anastomosis. Once the inner layer was completed another row of Lembert sutures were used for the anterior layer. Once this was completed, attention was turned to performing of the flexible sigmoidoscopy to test for leakage. Pneumoperitoneum was achieved. A bowel clamp was used to clamp proximal to the anastomosis. Once this was completed a flexible sigmoidoscope was inserted into the rectum by me. The anastomosis was easily visualized. It appeared to be patent. Air was then insufflated into the rectum. Air filled the small bowel. This was confirmed with direct laparoscopic visualization. Air was found to escape through the anus, without obvious leakage of air into the abdominal cavity (through the anastomosis). Once no leakage of air was confirmed, the air was suctioned from the rectum, the scope was removed, and this portion of the procedure was concluded. Attention was then turned to washout of the abdomen and closure. The abdomen was copiously irrigated with saline solution. No active bleeding or other a bnormalities could be identified within the abdominal cavity. The trochars were removed, and pneumoperitoneum was relieved. The lower midline extraction site was closed using #1 double-stranded looped PDS suture in simple running fashion. The supraumbilical and right lower quadrant incisions were closed using 0 Vicryl suture in [id number] fashion under direct visualization. The overlying skin was closed using skin magui. Dressings were placed, and the procedure was concluded. All sponge, instrument, and needle counts were correct x2. Condition: Stable. Zoraida Smith PA-C was scrubbed and present the entirety of the procedure. She assisted with all portions of the procedure including placement of the trochars, manipulation of the camera, manipulation of the intestines, removal of the colon, creation of the anastomosis, closure of the fascia, and closure of the skin.
[2018-06-14] MEDS ORDERED: DEXAMETHASONE SOD PHOS INJ 10 MG/1 ML VIAL ONE (13:59)
[2018-06-14] MEDS: DEXTROSE 5%-LACTATED RINGERS 1,000 ML IV PRN (16:33)
[2018-06-14] MEDS: KETOROLAC TROMETHAMINE INJ/PF 30 MG/1 ML SDV IV SCH ×2 (16:33→21:08)
[2018-06-14] MEDS: CEFOXITIN SODIUM 2 GM in DEXTROSE 5%-WATER 100 ML IV SCH (18:42)
[2018-06-14] MEDS: FAMOTIDINE INJ/PF 20 MG/2 ML SDV IV SCH (21:07)
[2018-06-14] MEDS: HYDROCODONE/ACETAMINOPHEN 10-325 MG TABLET PO PRN (21:08)
[2018-06-15] MEDS: HYDROCODONE/ACETAMINOPHEN 10-325 MG TABLET PO PRN ×5 (02:58→21:54)
[2018-06-15] MEDS: CEFOXITIN SODIUM 2 GM in DEXTROSE 5%-WATER 100 ML IV SCH (03:02)
[2018-06-15] MEDS: DEXTROSE 5%-LACTATED RINGERS 1,000 ML IV PRN ×3 (03:05→21:58)
[2018-06-15] MEDS: KETOROLAC TROMETHAMINE INJ/PF 30 MG/1 ML SDV IV SCH ×3 (05:42→21:54)
[2018-06-15 07:22] LABS: ABSOLUTE LYMPHOCYTES (AUTO) 0.8 10^3/uL (0.5-4.7); ABSOLUTE NEUT (AUTO) 9.1 10^3/uL (1.7-8.2); BASOPHILS % (AUTO) 0.1 % (0-2); HEMATOCRIT 35.2 % (37.9-51.0); HEMOGLOBIN 11.9 g/dL (13.5-17.0); LYMPHOCYTES % (AUTO) 7.7 % (13-45); MEAN CORPUSCULAR HGB CONC 33.9 g/dL (32.0-36.0); MEAN CORPUSCULAR VOLUME 89 fl (80-97); MONOCYTES % (AUTO) 9.3 % (3-13); PLATELET COUNT 151 10^3/uL (150-450); RED BLOOD COUNT 3.98 10^6/uL (4.35-5.55); RED CELL DISTRIBUTION WIDTH 17.1 % (11.5-14.0); SEGMENTED NEUTROPHILS % (AUTO) 82.9 % (42-78); TOTAL CELLS COUNTED % (AUTO) 100 %; WHITE BLOOD COUNT 10.9 10^3/uL (4.0-10.5)
[2018-06-15 07:40] LABS: BLOOD UREA NITROGEN 7 mg/dL (7-20); CALCIUM 8.4 mg/dL (8.4-10.2); GLUCOSE 126 mg/dL (75-110); POTASSIUM 4.3 mmol/L (3.6-5.0)
[2018-06-15 07:45] LABS: ANION GAP 6 (5-19); CARBON DIOXIDE 26 mmol/L (22-30); CHLORIDE 105 mmol/L (98-107); SODIUM 136.7 mmol/L (137-145)
[2018-06-15] MEDS: FAMOTIDINE INJ/PF 20 MG/2 ML SDV IV SCH ×2 (09:09→21:53)
[2018-06-15] MEDS: ENOXAPARIN SODIUM INJ 40 MG/0.4 ML DISP.SYRIN SUBCUT SCH (09:11)
--- NOTE | 2018-06-15 11:17 | PDOC PROGRESS REPORT ---
Subjective Progress Note for:: 06/15/18 Reason For Visit: S/P TOTAL ABDOMINAL COLECTOMY Physical Exam Vital Signs: Temp Pulse Resp BP Pulse Ox 98.7 F 56 L 14 117/57 L 98 06/15/18 08:00 06/15/18 08:00 06/15/18 08:00 06/15/18 08:00 06/15/18 08:00 Intake & Output 06/14/18 06/15/18 06/16/18 06:59 06:59 06:59 Intake Total 0 4005 Output Total 2100 Balance 0 1905 Weight 61.23 kg 69.6 kg Results Laboratory Results: 06/15/18 06:47 06/15/18 06:47 06/15/18 06/15/18 06:47 06:47 WBC 10.9 H RBC 3.98 L Hgb 11.9 L Hct 35.2 L MCV 89 MCH 30.0 MCHC 33.9 RDW 17.1 H Plt Count 151 Seg Neutrophils % 82.9 H Lymphocytes % 7.7 L Monocytes % 9.3 Eosinophils % 0.0 Basophils % 0.1 Absolute Neutrophils 9.1 H Absolute Lymphocytes 0.8 Absolute Monocytes 1.0 Absolute Eosinophils 0.0 Absolute Basophils 0.0 Sodium 136.7 L Potassium 4.3 Chloride 105 Carbon Dioxide 26 Anion Gap 6 BUN 7 Creatinine 0.70 Est GFR ( Amer) > 60 Est GFR (Non-Af Amer) > 60 Glucose 126 H Calcium 8.4 Impressions: Chest X-Ray 06/07/18 09:25 IMPRESSION: Hyperexpansion. Scarring in the apices. No acute findings. Assessment & Plan - Diagnosis (1) Polyposis coli Is this a current diagnosis for this admission?: Yes - Plan Summary Plan Summary: 53-year-old male status post laparoscopic total abdominal colectomy for multiple colon polyps. The patient underwent ileorectal anastomosis. He is postoperative day #1. The patient denies any flatus. His pain is reasonably well controlled. Out of bed today. DVT prophylaxis. Aggressive pulmonary toilet. Continue full liquids until return of bowel function. Repeat labs tomorrow.
[2018-06-16 05:25] LABS: ABSOLUTE EOSINOPHILS # (AUTO) 0.1 10^3/uL (0.0-0.6); ABSOLUTE LYMPHOCYTES (AUTO) 1.1 10^3/uL (0.5-4.7); ABSOLUTE MONOCYTES (AUTO) 0.7 10^3/uL (0.1-1.4); ABSOLUTE NEUT (AUTO) 7.9 10^3/uL (1.7-8.2); BASOPHILS % (AUTO) 0.2 % (0-2); EOSINOPHILS % (AUTO) 0.5 % (0-6); HEMATOCRIT 36.3 % (37.9-51.0); HEMOGLOBIN 12.2 g/dL (13.5-17.0); LYMPHOCYTES % (AUTO) 10.9 % (13-45); MEAN CORPUSCULAR HEMOGLOBIN 30.1 pg (27.0-33.4); MEAN CORPUSCULAR HGB CONC 33.6 g/dL (32.0-36.0); MEAN CORPUSCULAR VOLUME 90 fl (80-97); MONOCYTES % (AUTO) 6.7 % (3-13); PLATELET COUNT 161 10^3/uL (150-450); RED BLOOD COUNT 4.05 10^6/uL (4.35-5.55); RED CELL DISTRIBUTION WIDTH 17.7 % (11.5-14.0); SEGMENTED NEUTROPHILS % (AUTO) 81.7 % (42-78); TOTAL CELLS COUNTED % (AUTO) 100 %; WHITE BLOOD COUNT 9.7 10^3/uL (4.0-10.5)
[2018-06-16 05:47] LABS: ANION GAP 6 (5-19); BLOOD UREA NITROGEN 6 mg/dL (7-20); CALCIUM 8.6 mg/dL (8.4-10.2); CARBON DIOXIDE 28 mmol/L (22-30); CHLORIDE 105 mmol/L (98-107); GLUCOSE 111 mg/dL (75-110); POTASSIUM 3.7 mmol/L (3.6-5.0); SODIUM 138.7 mmol/L (137-145)
[2018-06-16] MEDS: KETOROLAC TROMETHAMINE INJ/PF 30 MG/1 ML SDV IV SCH ×3 (06:03→21:41)
[2018-06-16] MEDS: DEXTROSE 5%-LACTATED RINGERS 1,000 ML IV PRN (07:48)
[2018-06-16] MEDS: ENOXAPARIN SODIUM INJ 40 MG/0.4 ML DISP.SYRIN SUBCUT SCH (09:48)
[2018-06-16] MEDS: FAMOTIDINE INJ/PF 20 MG/2 ML SDV IV SCH ×2 (11:31→21:41)
[2018-06-16] MEDS: OXYCODONE-ACETAMINOPHEN 5-325 MG TABLET PO PRN ×2 (12:28→17:19)
[2018-06-16] MEDS: DIPHENOXYLATE HCL/ATROP SULF 2.5-0.025 MG TABLET PO SCH ×2 (12:29→17:16)
--- NOTE | 2018-06-16 14:00 | PDOC PROGRESS REPORT ---
Subjective Progress Note for:: 06/16/18 Reason For Visit: S/P TOTAL ABDOMINAL COLECTOMY Physical Exam Vital Signs: Temp Pulse Resp BP Pulse Ox 97.9 F 65 15 144/69 H 95 06/16/18 11:28 06/16/18 11:28 06/16/18 11:28 06/16/18 11:28 06/16/18 11:28 Intake & Output 06/15/18 06/16/18 06/17/18 06:59 06:59 06:59 Intake Total 4005 2672 983 Output Total 2100 400 Balance 1905 2272 983 Weight 69.6 kg 65.1 kg Results Laboratory Results: 06/16/18 04:42 06/16/18 04:42 06/16/18 06/16/18 04:42 04:42 WBC 9.7 RBC 4.05 L Hgb 12.2 L Hct 36.3 L MCV 90 MCH 30.1 MCHC 33.6 RDW 17.7 H Plt Count 161 Seg Neutrophils % 81.7 H Lymphocytes % 10.9 L Monocytes % 6.7 Eosinophils % 0.5 Basophils % 0.2 Absolute Neutrophils 7.9 Absolute Lymphocytes 1.1 Absolute Monocytes 0.7 Absolute Eosinophils 0.1 Absolute Basophils 0.0 Sodium 138.7 Potassium 3.7 Chloride 105 Carbon Dioxide 28 Anion Gap 6 BUN 6 L Creatinine 0.71 Est GFR ( Amer) > 60 Est GFR (Non-Af Amer) > 60 Glucose 111 H Calcium 8.6 Impressions: Chest X-Ray 06/07/18 09:25 IMPRESSION: Hyperexpansion. Scarring in the apices. No acute findings. Assessment & Plan - Diagnosis (1) Polyposis coli Is this a current diagnosis for this admission?: Yes - Plan Summary Plan Summary: 53-year-old male status post laparoscopic total abdominal colectomy for multiple colon polyps. The patient underwent ileorectal anastomosis. He is postoperative day #2. The patient is passing flatus and having bowel movements. His pain is reasonably well controlled. Out of bed. DVT prophylaxis. Aggressive pulmonary toilet. Advance diet. D/C hydrocodone and start oxycodone due to incompletely controlled pain. Continue Toradol. Start Lomotil 5 mg p.o. twice daily.
[2018-06-17] MEDS: OXYCODONE-ACETAMINOPHEN 5-325 MG TABLET PO PRN (02:56)
[2018-06-17] MEDS: KETOROLAC TROMETHAMINE INJ/PF 30 MG/1 ML SDV IV SCH (05:12)
--- NOTE | 2018-06-17 07:23 | PDOC DISCHARGE SUMMARY ---
General - Admit/Disc Date/PCP Admission Date/Primary Care Provider: 06/14/18 05:30 MCKENNA FERNANDEZ Discharge Date: 06/17/18 - Discharge Diagnosis (1) Polyposis coli Is this a current diagnosis for this admission?: Yes - Additional Information Discharge Diet: As Tolerated Discharge Activity: No Lifting Over 10 Pounds Home Medications: No Home Medications 12/21/17 History of Present Illness History of Present Illness: MARIE BRUNSON JR is a 53 year old male with multiple colon polyps. He was admitted to the hospital for total abdominal colectomy. This was completed laparoscopically. A handsewn ileorectal anastomosis was performed. The patient was then taken to the floor in stable condition. Hospital Course Hospital Course: The patient began ambulating shortly after surgery. His bowel function returned, and he was advanced to a regular diet. By 06/17/2018 the patient was feeling well, ambulating without assistance, and was tolerating regular diet. At this time it was felt that he had reached maximal hospital benefit and was fit for discharge. Physical Exam Vital Signs: Temp Pulse Resp BP Pulse Ox 97.7 F 64 16 142/75 H 93 06/16/18 23:25 06/16/18 23:25 06/16/18 23:25 06/16/18 23:25 06/16/18 23:25 Intake & Output 06/16/18 06/17/18 06/18/18 06:59 06:59 06:59 Intake Total 2672 3263 Output Total 400 Balance 2272 3263 Weight 65.1 kg 65.1 kg Results Laboratory Results: 06/16/18 04:42 06/16/18 04:42 Impressions: Chest X-Ray 06/07/18 09:25 IMPRESSION: Hyperexpansion. Scarring in the apices. No acute findings. Qualifiers - * PATIENT BEING DISCHARGED WITH ANY OF THE FOLLOWING DIAGNOSIS: No Plan Discharge Plan: Discharge home. Diet as tolerated. Activity: No lifting greater than 10 pounds x 6 weeks. Follow-up with me in 7-10 days at [facility]. Lomotil 5 mg p.o. twice daily. Percocet 10/325 mg p.o. every 6 hours as needed for pain. Okay to shower. No tub baths or swimming pools times 2 weeks. Time Spent: Less than 30 Minutes
[2018-06-17 09:03] VITALS: BP 152/76
== END 2018-06-17 08:45 | disposition home or self-care (01) | DRG 331 ==
LOC: EDSTATUS 07:30 → INOR 06-14 05:30 → 4N 06-14 15:14
PROVIDERS: ADMIT Surgery; ATTEND Surgery
PROC: 0DJD8ZZ Inspection of Lower Intestinal Tract, Via Natural or Artificial Opening Endoscopic (ICD-10-PCS; 2018-06-14)
PROC: 0DTE4ZZ Resection of Large Intestine, Percutaneous Endoscopic Approach (ICD-10-PCS; principal; 2018-06-14 07:30)
DX: K63.5 Polyp of colon (principal); F17.210 Nicotine dependence, cigarettes, uncomplicated; Z85.048 Personal history of other malignant neoplasm of rectum, rectosigmoid junction, and anus
CPT/HCPCS: 36415; 71046; 790; 80048; 85025; 85027; 88309; 93005; 93010; J0131; J0330; J0694; J1100; J1170; J1741; J1885; J2250; J2270; J2370; J2405; J2704; J2765; J3010; J3490; J7050; S0028

== ENCOUNTER → 2018-12-18 | Outpatient (CLI) | payer BC ==
--- NOTE | 2018-12-18 13:28 | RADIOLOGY REPORT (SQ) ---
EXAM DESCRIPTION: MRI HEAD COMBO COMPLETED DATE/TIME: 12/18/2018 1:13 pm REASON FOR STUDY: H53.2 DIPLOPIA H53.2 DIPLOPIA COMPARISON: None. TECHNIQUE: Multiplanar imaging includes noncontrasted T1, T2, FLAIR, diffusion with ADC map and post gadolinium contrast T1 sequences. Images stored on PACS. CONTRAST TYPE AND DOSE: 10 mL Dotarem. RENAL FUNCTION: Not indicated. ACR Type II contrast agent associated with few, if any, unconfounded cases of NSF LIMITATIONS: None. FINDINGS: ANATOMY: No anomalies. Normal vascular flow voids. Pituitary fossa normal. CSF SPACES: Normal in size and contour. No hemorrhage. CEREBRUM: Sulci and gyri normal in size and contour. Scattered areas of high signal on the subcortic al and periventricular white matter on STIR sequences. No evidence of hemorrhage, mass, or extraaxia l fluid collection. No abnormal enhancement post contrast. POSTERIOR FOSSA: No signal alteration. No hemorrhage. No edema, masses, or mass effect. Internal marleny tory canals, cerebellopontine angles, mastoids normal. No enhancing lesions. No abnormal enhancement post contrast. DIFFUSION IMAGING: Focal area of high signal intensity in the right thalamus. This demonstrates isoi ntense signal on apparent diffusion and probably represents subacute to chronic infarct. ORBITS: No masses. Globes normal. PARANASAL SINUSES: No fluid levels. Mucosa normal. OTHER: No other significant finding. IMPRESSION: Mild small-vessel ischemic change. 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 No abnormal enhancement. EVIDENCE OF ACUTE STROKE: NO. TECHNICAL DOCUMENTATION: JOB ID: [id number] [employer]- All Rights Reserved Reading location - IP/workstation name: [email or web address]
== END ==
LOC: RAD 11:45
PROVIDERS: ATTEND Ophthalmology
DX: H53.2 Diplopia (principal)
CPT/HCPCS: 82565; 70553; A9576

== ENCOUNTER → 2019-02-04 | Outpatient (CLI) | payer BC ==
--- NOTE | 2019-02-04 11:39 | RADIOLOGY REPORT (SQ) ---
EXAM DESCRIPTION: CT CHEST WITH COMPLETED DATE/TIME: 02/04/2019 10:50 am REASON FOR STUDY: (C20)MALIGNANT NEOPLASM OF RECTUM C20 MALIGNANT NEOPLASM OF RECTUM COMPARISON: None. TECHNIQUE: CT scan of the chest performed using helical scanning technique with dynamic intravenous contrast injection. Images reviewed with lung, soft tissue and bone windows. Reconstructed coronal and sagittal MPR and MIP images reviewed. All images stored on PACS. All CT scanners at this facility use dose modulation, iterative reconstruction, and/or weight based d osing when appropriate to reduce radiation dose to as low as reasonably achievable (ALARA). [facility]: Dose Right [facility]: CareDose [facility]: Dose Right [facility]: Teradose 4D [facility]: [employer] CONTRAST TYPE AND DOSE: 73 mL Omnipaque 350- low osmolar. RENAL FUNCTION: Creatinine 1.1 RADIATION DOSE: CT Rad equipment meets quality standard of care and radiation dose reduction techniq ues were employed. CTDIvol: 4.5 - 4.8 mGy. DLP: 674 mGy-cm. . LIMITATIONS: None. FINDINGS: LUNGS AND PLEURA: Paraseptal emphysematous changes seen in the upper lobes, right more ayad n left. There are no pulmonary masses or infiltrates. There is no pleural effusion. HILAR AND MEDIASTINAL STRUCTURES: No identified masses or abnormal nodes. HEART AND VASCULAR STRUCTURES: No aneurysm or dissection. No central pulmonary emboli. No pericardi al effusion. HARDWARE: None in the chest. UPPER ABDOMEN: See separate report of the CT of the abdomen. THYROID AND OTHER SOFT TISSUES: No masses. No adenopathy. BONES: No significant finding. OTHER: No other significant finding. IMPRESSION: Pulmonary emphysema as described. No evidence of metastatic disease in the thorax. TECHNICAL DOCUMENTATION: JOB ID: [id number] Quality ID # [id number]: Final reports with documentation of one or more dose reduction techniques (e.g., Au tomated exposure control, adjustment of the mA and/or kV according to patient size, use of iterative reconstruction technique) 2010 [employer]- All Rights Reserved Reading location - IP/workstation name: [email or web address]
--- NOTE | 2019-02-04 11:45 | RADIOLOGY REPORT (SQ) ---
EXAM DESCRIPTION: CT ABD/PELVIS WITH IV ORAL COMPLETED DATE/TIME: 02/04/2019 10:50 am REASON FOR STUDY: (C20)MALIGNANT NEOPLASM OF RECTUM C20 MALIGNANT NEOPLASM OF RECTUM COMPARISON: None. TECHNIQUE: CT scan of the abdomen and pelvis performed using helical scanning technique with dynamic intravenous contrast injection. Oral contrast. Images reviewed with lung, soft tissue, and bone win dows. Reconstructed coronal and sagittal MPR images reviewed. Delayed images for evaluation of the ur inary system also acquired. All images stored on PACS. All CT scanners at this facility use dose modulation, iterative reconstruction, and/or weight based d osing when appropriate to reduce radiation dose to as low as reasonably achievable (ALARA). [facility]: Dose Right [facility]: CareDose [facility]: Dose Right [facility]: Teradose 4D [facility]: [employer] CONTRAST TYPE AND DOSE: contrast/concentration: Isovue 350.00 mg/ml; Total Contrast Delivered: 73.0 ml; Total Saline Delivered: 66.0 ml RENAL FUNCTION: Creatinine 1.1 RADIATION DOSE: . LIMITATIONS: None. FINDINGS: LOWER CHEST: See separate report of the CT of the chest. LIVER: Normal size. No masses. No dilated ducts. SPLEEN: Normal size. No focal lesions. PANCREAS: No masses. No significant calcifications. No adjacent inflammation or peripancreatic fluid collections. Pancreatic duct not dilated. GALLBLADDER: No identified stones by CT criteria. No inflammatory changes to suggest cholecystitis. ADRENAL GLANDS: No significant masses or asymmetry. RIGHT KIDNEY AND URETER: No solid masses. No significant calcifications. No hydronephrosis or hyd roureter. LEFT KIDNEY AND URETER: No solid masses. No significant calcifications. No hydronephrosis or hydr oureter. AORTA AND VESSELS: No aneurysm. No dissection. Renal arteries, SMA, celiac without stenosis. RETROPERITONEUM: No retroperitoneal adenopathy, hemorrhage or masses. BOWEL AND PERITONEAL CAVITY: No masses or inflammatory changes. No free fluid or peritoneal masses. APPENDIX: Not identified. PELVIS: Urinary bladder is incompletely filled. The bladder wall appears to be thickened. No pelvic mass or fluid collection. ABDOMINAL WALL: No masses. No hernias. BONES: No significant or acute findings. OTHER: No other significant finding. IMPRESSION: There is no evidence of recurrent or metastatic neoplasm in the abdomen or pelvis. Ther e appears to be thickening of bladder wall. Correlate for cystitis or bladder outlet obstruction. TECHNICAL DOCUMENTATION: JOB ID: [id number] Quality ID # [id number]: Final reports with documentation of one or more dose reduction techniques (e.g., Au tomated exposure control, adjustment of the mA and/or kV according to patient size, use of iterative reconstruction technique) 2010 [employer]- All Rights Reserved Reading location - IP/workstation name: [email or web address]
== END ==
LOC: RAD 10:06
PROVIDERS: ATTEND Nurse Practitioner Family
DX: C20 Malignant neoplasm of rectum (principal); J43.9 Emphysema, unspecified
CPT/HCPCS: 71260; 74177; 82565

== ENCOUNTER 2019-03-24 09:28 | Emergency (ER) | payer BC ==
--- NOTE | 2019-03-24 09:49 | ER Document Report ---
ED Medical Screen (RME) - General Chief Complaint: S/S of Possible Stroke Stated Complaint: POSSIBLE STROKE Time Seen by Provider: 03/24/19 09:41 Primary Care Provider: NATALYA COLON FNP [Primary Care Provider] - Follow up as needed Notes: Patient is a 53-year-old male with a history of colon cancer with colectomy, TIA who presents emergency department with a chief complaint of right sided weakness. Patient reports Sunday he was in his garage on a ladder hanging insulation when he noticed throughout the day having more weakness and feeling off balance with his right leg. Patient reports he also feels a tingling to his right arm. Patient reports he does have a history of TIA in November 2018. reports she feels like the patient is more sluggish and his speech is slightly different from his normal. She states that the patient laid in bed all day yesterday. TRAVEL OUTSIDE OF THE [place] IN LAST 30 DAYS: No - Related Data Allergies/Adverse Reactions: No Known Allergies Allergy (Verified 06/14/18 06:14) Past Medical History - Social History Drug Abuse: None - Past Medical History Cardiac Medical History: Denies: Hx Coronary Artery Disease, Hx Heart Attack, Hx Hypertension, Hx Pulmonary Embolism Pulmonary Medical History: Reports: Hx Pneumonia - Pneumonia once as a child Denies: Hx Asthma, Hx Bronchitis, Hx COPD, Hx Respiratory Failure, Hx Sleep Apnea, Hx Tuberculosis Neurological Medical History: Denies: Hx Cerebrovascular Accident, Hx Seizures Renal/ Medical History: Denies: Hx Peritoneal Dialysis Malignancy Medical History: Denies Hx Lung Cancer GI Medical History: Denies: Hx Crohn's Disease, Hx Gastroesophageal Reflux Disease, Hx Hiatal Hernia, Hx Irritable Bowel, Hx Liver Failure, Hx Pancreatitis, Hx Ulcer Musculoskeltal Medical History: Denies Hx Arthritis Past Surgical History: Reports: Hx Bowel Surgery - Colon tumor and 40 polyps removed , Other - Transanal excision of a rectal tumor. Denies: Hx Appendectomy, Hx Cholecystectomy, Hx Colostomy, Hx Coronary Artery Bypass Graft, Hx Gastric Bypass Surgery, Hx Herniorrhaphy, Hx Pacemaker, Hx Tonsillectomy - Immunizations Hx Diphtheria, Pertussis, Tetanus Vaccination: No Physical Exam - Vital signs Vitals: Temp Pulse Resp BP Pulse Ox 98.1 F 83 16 158/68 H 99 03/24/19 09:33 03/24/19 09:33 03/24/19 09:33 03/24/19 09:33 03/24/19 09:33 Course - Re-evaluation Re-evalutation: 03/24/19 09:49 I have greeted and performed a rapid initial assessment of this patient. A comprehensive ED assessment and evaluation of the patient, analysis of test results and completion of the medical decision making process will be conducted by additional ED providers. - Vital Signs Vital signs: Temp Pulse Resp BP Pulse Ox 98.1 F 83 16 158/68 H 99 03/24/19 09:33 03/24/19 09:33 03/24/19 09:33 03/24/19 09:33 03/24/19 09:33 Doctor's Discharge - Discharge Referrals: NATALYA COLON FNP [Primary Care Provider] - Follow up as needed
[2019-03-24 10:18] LABS: ABSOLUTE BASOPHILS # (AUTO) 0.1 10^3/uL (0.0-0.2); ABSOLUTE EOSINOPHILS # (AUTO) 0.1 10^3/uL (0.0-0.6); ABSOLUTE LYMPHOCYTES (AUTO) 1.5 10^3/uL (0.5-4.7); ABSOLUTE MONOCYTES (AUTO) 0.6 10^3/uL (0.1-1.4); ABSOLUTE NEUT (AUTO) 5.6 10^3/uL (1.7-8.2); BASOPHILS % (AUTO) 0.7 % (0-2); EOSINOPHILS % (AUTO) 1.2 % (0-6); HEMATOCRIT 45.1 % (37.9-51.0); HEMOGLOBIN 15.4 g/dL (13.5-17.0); LYMPHOCYTES % (AUTO) 19.3 % (13-45); MEAN CORPUSCULAR HEMOGLOBIN 33.1 pg (27.0-33.4); MEAN CORPUSCULAR HGB CONC 34.1 g/dL (32.0-36.0); MEAN CORPUSCULAR VOLUME 97 fl (80-97); MONOCYTES % (AUTO) 7.5 % (3-13); PLATELET COUNT 248 10^3/uL (150-450); RED BLOOD COUNT 4.65 10^6/uL (4.35-5.55); RED CELL DISTRIBUTION WIDTH 13.3 % (11.5-14.0); SEGMENTED NEUTROPHILS % (AUTO) 71.3 % (42-78); TOTAL CELLS COUNTED % (AUTO) 100 %; WHITE BLOOD COUNT 7.9 10^3/uL (4.0-10.5)
--- NOTE | 2019-03-24 10:35 | RADIOLOGY REPORT (SQ) ---
EXAM DESCRIPTION: CHEST 2 VIEWS COMPLETED DATE/TIME: 03/24/2019 10:15 am REASON FOR STUDY: right sided weakness, started 2 days ago COMPARISON: CT chest 02/04/2019 Two-view chest 06/07/2018 EXAM PARAMETERS: NUMBER OF VIEWS: two views TECHNIQUE: Digital Frontal and Lateral radiographic views of the chest acquired. RADIATION DOSE: NA LIMITATIONS: none FINDINGS: LUNGS AND PLEURA: Stable biapical pleuroparenchymal scarring. Lungs are hyperinflated but clear. No pleural effusions or pneumothorax. MEDIASTINUM AND HILAR STRUCTURES: No masses or contour abnormalities. HEART AND VASCULAR STRUCTURES: Heart normal size. No evidence for failure. BONES: No acute findings. HARDWARE: None in the chest. OTHER: No other significant finding. IMPRESSION: Biapical pleural-parenchymal scarring with mild upper lobe hyperinflation. No acute infiltrates. TECHNICAL DOCUMENTATION: JOB ID: [id number] [employer]- All Rights Reserved Reading location - IP/workstation name: [email or web address]
--- NOTE | 2019-03-24 10:38 | RADIOLOGY REPORT (SQ) ---
EXAM DESCRIPTION: CT HEAD WITHOUT COMPLETED DATE/TIME: 03/24/2019 10:15 am REASON FOR STUDY: right sided weakness, started 2 days ago COMPARISON: None. TECHNIQUE: Axial images acquired through the brain without intravenous contrast. Images reviewed wi th bone, brain and subdural windows. Additional sagittal and coronal reconstructions were generated. Images stored on PACS. All CT scanners at this facility use dose modulation, iterative reconstruction, and/or weight based d osing when appropriate to reduce radiation dose to as low as reasonably achievable (ALARA). [facility]: Dose Right [facility]: CareDose [facility]: Dose Right [facility]: Teradose 4D [facility]: [employer] RADIATION DOSE: CT Rad equipment meets quality standard of care and radiation dose reduction techniq ues were employed. CTDIvol: 53.2 mGy. DLP: 1017 mGy-cm. mGy. LIMITATIONS: None. FINDINGS: VENTRICLES: Normal size and contour. CEREBRUM: No masses. No hemorrhage. No midline shift. No evidence for acute infarction. Normal gra y/white matter differentiation. No areas of low density in the white matter. CEREBELLUM: No masses. No hemorrhage. No alteration of density. No evidence for acute infarction. EXTRAAXIAL SPACES: No fluid collections. No masses. ORBITS AND GLOBE: Old left orbital floor fracture stabilized with metallic mesh prosthesis. Globes i ntact. No retrobulbar hematoma or mass. CALVARIUM: No fracture. PARANASAL SINUSES: Mucous membrane thickening in the bilateral frontal and ethmoid air cells. SOFT TISSUES: No mass or hematoma. OTHER: No other significant finding. IMPRESSION: Old left orbital floor fracture repair, intact. No acute intracranial findings. EVIDENCE OF ACUTE STROKE: NO. COMMENT: Quality ID # [id number]: Final reports with documentation of one or more dose reduction techniques (e.g., Automated exposure control, adjustment of the mA and/or kV according to patient size, use of iterative reconstruction technique) TECHNICAL DOCUMENTATION: JOB ID: [id number] [employer]- All Rights Reserved Reading location - IP/workstation name: [email or web address]
[2019-03-24 10:42] LABS: ALBUMIN 4.2 g/dL (3.5-5.0); ALKALINE PHOSPHATASE 80 U/L (38-126); ANION GAP 8 (5-19); ASPARTATE AMINO TRANSFERASE 21 U/L (17-59); BILIRUBIN,DIRECT 0.2 mg/dL (0.0-0.4); BILIRUBIN,TOTAL 0.6 mg/dL (0.2-1.3); BLOOD UREA NITROGEN 11 mg/dL (7-20); CALCIUM 9.8 mg/dL (8.4-10.2); CARBON DIOXIDE 30 mmol/L (22-30); CHLORIDE 103 mmol/L (98-107); GLUCOSE 104 mg/dL (75-110); POTASSIUM 4.7 mmol/L (3.6-5.0); TOTAL PROTEIN 7.4 g/dL (6.3-8.2)
[2019-03-24 11:18] LABS: APPEARANCE,URINE CLEAR; BILIRUBIN,URINE NEGATIVE (NEGATIVE); COLOR,URINE YELLOW; GLUCOSE, URINE NEGATIVE (NEGATIVE); KETONES,URINE NEGATIVE (NEGATIVE); LEUKOCYTE ESTERASE,URINE NEGATIVE (NEGATIVE); NITRITE,URINE NEGATIVE (NEGATIVE); PROTEIN,URINE NEGATIVE (NEGATIVE); URINE SPECIFIC GRAVITY 1.005; UROBILINOGEN,URINE NEGATIVE mg/dL (<2.0)
--- NOTE | 2019-03-24 11:38 | ER Document Report ---
ED Neuro Symptoms/Deficit - General Chief Complaint: S/S of Possible Stroke Stated Complaint: POSSIBLE STROKE Time Seen by Provider: 03/24/19 09:41 Primary Care Provider: NATALYA COLON FNP [Primary Care Provider] - Follow up as needed Mode of Arrival: Ambulatory Information source: Patient TRAVEL OUTSIDE OF THE [place] IN LAST 30 DAYS: No - HPI Notes: 53 year old male with a history of a prior stroke in November of 2018 (the stroke was confined to his left eye at that time) and colon cancer here for right sided weakness, right sided numbness, word finding difficulty which started Sunday and is improving but not resolved. The patient is concerned he had a stroke. The patient is on a baby aspirin daily, he is a smoker, and a he is a daily drinker. The patient says he had an outpatient stroke work up back in November including carotid dopplers, and echo, and an MRI. The patient followed up with a Neurologist and he was told he only needs to take a baby aspirin for treatment - Related Data Allergies/Adverse Reactions: No Known Allergies Allergy (Verified 03/24/19 10:50) Past Medical History - Social History Smoking Status: Current Every Day Smoker Frequency of alcohol use: daily drinker (1-2 drinks) Drug Abuse: None Family History: Reviewed & Not Pertinent Patient has suicidal ideation: No Patient has homicidal ideation: No - Past Medical History Cardiac Medical History: Denies: Hx Coronary Artery Disease, Hx Heart Attack, Hx Hypertension, Hx Pulmonary Embolism Pulmonary Medical History: Reports: Hx Pneumonia - Pneumonia once as a child Denies: Hx Asthma, Hx Bronchitis, Hx COPD, Hx Respiratory Failure, Hx Sleep Apnea, Hx Tuberculosis Neurological Medical History: Denies: Hx Cerebrovascular Accident, Hx Seizures Renal/ Medical History: Denies: Hx Peritoneal Dialysis Malignancy Medical History: Denies Hx Lung Cancer GI Medical History: Denies: Hx Crohn's Disease, Hx Gastroesophageal Reflux Dis ease, Hx Hiatal Hernia, Hx Irritable Bowel, Hx Liver Failure, Hx Pancreatitis, Hx Ulcer Musculoskeletal Medical History: Denies Hx Arthritis Past Surgical History: Reports: Hx Bowel Surgery - Colon tumor and 40 polyps removed , Other - Transanal excision of a rectal tumor. Denies: Hx Appendectomy, Hx Cholecystectomy, Hx Colostomy, Hx Coronary Artery Bypass Graft, Hx Gastric Bypass Surgery, Hx Herniorrhaphy, Hx Pacemaker, Hx Tonsillectomy - Immunizations Hx Diphtheria, Pertussis, Tetanus Vaccination: No Review of Systems - Review of Systems Notes: Constitutional: Negative for fever. HENT: Negative for sore throat. Eyes: Negative for visual changes. Cardiovascular: Negative for chest pain. Respiratory: Negative for shortness of breath. Gastrointestinal: Negative for abdominal pain, vomiting or diarrhea. Genitourinary: Negative for dysuria. Musculoskeletal: Negative for back pain. Skin: Negative for rash. Neurological: Negative for headaches. Right sided numbness and tingling noted along with some word finding difficulty 10 point ROS negative except as marked above and in HPI. Physical Exam - Vital signs Vitals: Temp Pulse Resp BP Pulse Ox 98.1 F 83 16 158/68 H 99 03/24/19 09:33 03/24/19 09:33 03/24/19 09:33 03/24/19 09:33 03/24/19 09:33 - General Notes: GENERAL: Well-appearing, well-nourished and in no acute distress. HEAD: Atraumatic, normocephalic. EYES: Pupils equal round and reactive to light, extraocular movements intact, sclera anicteric, conjunctiva are normal. ENT: TMs normal, nares patent, oropharynx clear without exudates. Moist mucous membranes. NECK: Normal range of motion, supple without lymphadenopathy or JVD. LUNGS: Breath sounds clear to auscultation bilaterally and equal. No wheezes rales or rhonchi. HEART: Regular rate and rhythm without murmurs, rubs or gallops. ABDOMEN: Soft, nontender, normoactive bowel sounds. No guarding, no rebound. No masses appreciated. EXTREMITIES: Normal range of motion, no pitting or edema. No clubbing or cyanosis. NEUROLOGICAL: Cranial nerves II through XII grossly intact. Mild weakness in RLE (4.5/5). Mild Right leg drag with ambulation. Normal speech. Patient says sensation in right face, right arm, and right leg are slightly diminished compared to left. PSYCH: Normal mood, normal affect. SKIN: Warm, Dry, normal turgor, no rashes or lesions noted. Course - Re-evaluation Re-evalutation: 03/24/19 12:34 The patient seems to have had a minor stroke affecting his right side (mostly his right leg at this point in time). The patient says the current symptoms started Sunday so he is not a TPA candidate. The patient has had an outpatient stroke work up in the recent past (echo, carotid dopplers, MRI) in November 2018 and he has an outpatient Neurologist. The patient is only on a baby aspirin and he is still a daily smoker. After speaking with the Hospitalist team, the plan is to obtain an MRI of his brain and admit for OBs. There is a chance the patient will be DCed to home from the ER by the Hospitalist Team however given his recent stroke work up. Please see Hospitalist Team notes. - Vital Signs Vital signs: Temp Pulse Resp BP Pulse Ox 98.1 F 83 16 158/68 H 99 03/24/19 09:33 03/24/19 09:33 03/24/19 09:33 03/24/19 09:33 03/24/19 09:33 - Laboratory Result Diagrams: 03/24/19 10:02 03/24/19 10:02 - Diagnostic Test Radiology reviewed: Reports reviewed - EKG Interpretation by Me EKG shows normal: Sinus rhythm Rate: Normal Rhythm: NSR When compared to previous EKG there are: No significant change ED Alteplase Inc/Exc Criteria - Inclusion Criteria: 1: Patient presented to ED within 3 hours of acute ischemic stroke symptom onset? -: No - patient is not a TPA candidate 2: Did baseline CT exclude intracranial hemorrhage and/or other risk factors? -: Yes 3: Is the age of the patient 18 years of age or greater? -: Yes : If any of the above questions are answered "NO" then stop, patient is not a candidate for Alteplase, : If all of the above questions are answered "YES" then continue with Exclusion Criteria. - Exclusion Criteria: 1: Is there evidence of intracranial hemorrhage on baseline CT? 2: Is there suspicion of subarachnoid hemorrhage (even if CT negative)? 3: Is there a history of serious head trauma, recent previous stroke or UT within 3 months? 4: Does the patient have a clinical presentation consistent with UT or post-UT pericarditis? 5: Is there history of intracranial hemorrhage? 6: On repeated measurement is Systolic BP greater than 185mmHg or Diastolic BP greater that 110 mmHg and is aggressive treatment needed to reduce blood pres sure to these limits (e.g. constant infusion of an anti-hypertensive)? 7: Did the patient awake with stroke symptoms? 8: Has the patient had a lumbar puncture or an arterial puncture at a non- compressile site within 7 days? 9: With in the last 14 days did the patient have surgery or major trauma? 10: Is the patient or less than 2 weeks? 11: Was there any active bleeding or acute trauma? 12: Does the patient have intracranial neoplasm, arteriovenous malformation or aneurysm? 13: Does the patient have abnormal glucose (less than 50 or greater than 400mg/dl)? Record glucose in Comment. 14: Patient has rapidly improving symptoms at the time Alteplase is to be Administered. 15: Does the patient have any risks for bleeding, including but not limited to: a.: Current use of Coumadin with PT greater than 15 seconds or INR greater than 1.7. b.: Current use of Pradaxa (Dabigatran). c.: Heparin administereed within the past 48 hours and PTT elevated. d.: Platelet count less than 100,000/mm. e.: Major surgery or serious trauma within 14 days. f.: Gastrointestinal or gynecological urinary bleeding within 14 days. g.: Myocardial Infarction (UT) within 3 months. : If the answer to any of the above questions is "YES" then stop, the patient is not a candidate for Alteplase. : If the answer to all of the above questions is "NO" then the patient may be eligible for the Administration of Alteplase. : If the patient is noted to have seizure activity at onset of Stroke symptoms; Consult Neurologist for further evaluation. - The patient is: -: Included and is eligible to receive Alteplase. *Initiate bed placement at higher level of care* Reviewed risks & benefits of thrombolytic therapy: I have reviewed the risks and benefits of thrombolytic therapy with the patient and/or his/her family. -: Excluded and not eligible to receive Alteplase for the above exclusions. -: Excluded and not eligible to receive Alteplase for other reasons (specify in comments): - Diagnosis of TIA: -: Patient presented with transient symptoms that are now resolved and no other neurologic findings are currently present. List symptoms in comments. -: Patient is NOT a candidate for tPA. -: Dr. ____(put name in comment) has been consulted for admission and continued evaluation of risk factor assessment. ED NIH Stroke Scale - NIH Stroke Scale *: 1. NIH scale should be completed with appropriate accompanying assessment tools. *: 2. The NIH should reflect what the patient is capable of doing and should not be coached by the clinician. 1a. Level of Consciousness: 0=Alert;keenly responsive -: 1=Drowsy -: 2=Obtunded -: 3=Coma/unresponsive or reflex to noxious stimuli. 1a. Responses: 0 1b. Orientation Questions: a. What month is it? -: b. How old are you? -: 0=Answers both questions correctly. -: 1=Answers one question correctly or patient is intubated or has orotracheal t rauma. -: 2=Answers neither question correctly. 1b. Responses: 0 1c. Response to commands: a. Open and close eyes? -: b. Customer Service Representative Teller and release hand? -: Credit is given despite weakness. Demonstration of task is permitted. Substitute command if hands cannot be used. -: 0=Performs both tasks correctly -: 1=Performs one task correctly -: 2=Performs neither task correctly 1c. Responses: 0 2. Gaze: Establish eye contact and instruct patient to "Follow my finger" -: 0=Normal -: 1=Partial gaze palsy. Gaze is abnormal in one or both eyes, but where forced deviation or total gaze paresis is not present. -: 2=Forced deviation or total gaze paresis. 2. Responses: 0 3. Visual Iqbal: Sees fingers in all four quadrants. -: 0=No visual loss. -: 1=Partial hemianopsia. -: 2=Complete hemianopsia. -: 3=Bilateral hemianopsia (including Cortical blindness) 3. Responses: 0 4. Facial Movement: Instruct patient to: -: a. Show me your teeth -: b. Raise your eyebrows -: c. Close your eyes -: d. Smile -: 0=Normal symmetrical movement -: 1=Minor paralysis (flattened nasolabial fold, asymmetry on smiling). -: 2=Partial paralysis (total or near total paralysis of lower face). -: 3=Complete paralysis of upper and lower face 4. Responses: 0 5. Motor functions (left arm): Alternate sides and extend each arm with palms down (90 degrees if sitting or 45 degrees for supine). -: 0=No drift;limb holds for full 10 seconds. -: 1=Drift; limb holds but drifts down before full 10 seconds, but does not hit bed. -: 2=Some effort against gravity; limb cannot get to or maintain position. -: 3=No effort against gravity; limb falls. -: 4=No movement. -: UN=Amputation, joint fusion, explain in comments. 5. Responses (left arm): 0 5. Motor Functions (right arm): Alternate sides and extend each arm with palms down (90 degrees if sitting or 45 degrees for supine). -: 0=No drift;limb holds for full 10 seconds. -: 1=Drift; limb holds but drifts down before full 10 seconds, but does not hit bed. -: 2=Some effort against gravity; limb cannot get to or maintain position. -: 3=No effort against gravity; limb falls. -: 4=No movement. -: UN=Amputation, joint fusion, explain in comments. 5. Responses (right arm): 0 6. Motor Functions (left leg): With patient lying supine, alternate sides and extend each leg (30 degrees always while supine). -: 0=No drift, leg holds position for full 5 seconds -: 1=Drift; leg falls before full 5 seconds but does not hit bed. -: 2=Some effort against gravity, leg falls to bed but some effort against gravity. -: 3=No effort against gravity, leg falls to bed immediately. -: 4=No movement. -: UN=Amputation, joint fusion; explain in comments. 6. Responses (left leg): 0 6. Motor Functions (right leg): With patient lying supine, alternate sides and extend each leg (30 degrees always while supine). -: 0=No drift, leg holds position for full 5 seconds -: 1=Drift; leg falls before full 5 seconds but does not hit bed. -: 2=Some effort against gravity, leg falls to bed but some effort against gravity. -: 3=No effort against gravity, leg falls to bed immediately. -: 4=No movement. -: UN=Amputation, joint fusion; explain in comments. 6. Responses (right leg): 1 7. Limb Ataxia: With eyes open instruct patient to: -: a. "Touch your finger to your nose". -: b. "Touch your heel to your heard" -: 0=Absent -: 1=Present in one limb. -: 2=Present in two limbs. -: UN=Amputation or joint fusion; explain in comments. 7. Responses: 0 8. Sensory: Test sensation using pinprick or noxious stimuli. Test as many body parts as possible. -: 0=Normal;no sensory loss -: 1=Mile to moderate sensory loss (patient feels pin prick but is less sharp on affected side). -: 2=Severe or total sensory loss. 8. Responses: 1 9. Best Language: Instruct patient to: -: a. "Describe what you see in this picture." -: b. "Name the items in this picture." -: c. "Read these sentences." -: 0=No aphasia, normal -: 1=Mild to moderate aphasia. -: 2=Severe aphasia -: 3=Mute, global aphasia, no usable speech or auditory comprehension. 9. Responses: 0 10. Articulation, Dysarthia: Instruct patient to: -: "Read these words" or "Repeat these words" -: 0=Normal -: 1=Mild to moderate; patient may slur some words but can be understood without difficulty. -: 2=Severe; patients speech so slurred as to be unintelligible in the absence of dysphasia. -: UN=Intubated or other physical barrier, explain in comments. 10. Responses: 0 11. Extinction or inattention: 0=No abnormality -: 1= Visual, tactile, auditory, spatial, or personal inattention or extinction to bilateral simulation in one or the sensory modalities. -: 2=Profound david-inattention or david-inattention to more than one modality; does not recognize own hand. 11. Responses: 0 Total Score: 2 Discharge - Discharge Clinical Impression: Ischemic stroke Condition: Stable Disposition: ADMITTED OBSERVATION Admitting Provider: Leia (Hospitalist) Unit Admitted: IMCU Referrals: NATALYA COLON FNP [Primary Care Provider] - Follow up as needed
--- NOTE | 2019-03-24 13:04 | RADIOLOGY REPORT (SQ) ---
EXAM DESCRIPTION: MRI HEAD WITHOUT COMPLETED DATE/TIME: 03/24/2019 12:46 pm REASON FOR STUDY: rule out stroke. right sided weakness and numbness COMPARISON: CT brain 03/24/2019 MRI brain 12/18/2018 TECHNIQUE: Multiplanar imaging includes non-contrasted T1, T2, FLAIR, and diffusion with ADC map seq uences. Images stored on PACS. LIMITATIONS: None. FINDINGS: ANATOMY: No developmental anomalies. Normal vascular flow voids. Pituitary fossa normal. CSF SPACES: Normal in size and contour. No hemorrhage. CEREBRUM: Diffusion-weighted images are positive for a small acute nonhemorrhagic infarct in the left posterior limb internal capsule/lateral thalamus on axial image 15. Remainder of the hemispheres demonstrate minimal spotty increased FLAIR/T2 signal in the hemispheric white matter likely from gliosis along perivascular spaces. POSTERIOR FOSSA: No signal alteration. No hemorrhage. No edema, masses or mass effect. Internal marleny tory canals, cerebello-pontine angles, mastoids normal. DIFFUSION IMAGING: Diffusion-weighted images are positive for a small acute nonhemorrhagic infarct in the left posterior limb internal capsule/lateral thalamus on axial image 15. ORBITS: No masses. Globes normal. PARANASAL SINUSES: No fluid levels. Mucosa normal. OTHER: No other significant finding. IMPRESSION: Diffusion-weighted images are positive for a small acute nonhemorrhagic infarct in the l eft posterior limb internal capsule/lateral thalamus on axial image 15. EVIDENCE OF ACUTE STROKE: Yes. COMMENT: Report called to Car Gil in the emergency room as a critical result,, 03/24/2019, 1257 hours. Positive diffusion study TECHNICAL DOCUMENTATION: JOB ID: [id number] [employer]- All Rights Reserved Reading location - IP/workstation name: [email or web address]
--- NOTE | 2019-03-24 14:04 | PDOC CONSULTATION ---
Consultation Consult Date: 03/24/19 Attending physician:: RUSS Desai BRYANT Provider Consulted: UNIQUE HUANG JR Consult reason:: Stroke History of Present Illness Admission Date/PCP: 03/24/19 12:08 MCKENNA FERNANDEZ History of Present Illness: MARIE BRUNSON JR is a 53 year old male who comes to the emergency room today for right sided weakness. Patient states that on Sunday, March 22, 2019, noticed weakness and "clumsiness" in his right leg, as well as his right arm.. is in the room said she also noticed on Sunday some slurring of his speech. She states that yesterday all the symptoms started to improve and today they are better than they were yesterday. Patient states that back in November he had possible TIA causing diplopia that lasted about 24 hours. That time patient had an MRI scan and was put on enteric-coated baby aspirin 81 mg a day. Evidently he had a infarct in the thalamic region. Since then patient has seen a neurologist at [facility], recently last week. Patient has had echocardiograms and carotid Dopplers, showed no significant stenosis or vegetation. Patient has a primary provider in [place]. States his only medicine involves what sounds to be [id number] diarrhea medicine and the baby aspirin. Patient did have a colectomy June 14, 2018 for cancer. She had no chemotherapy or radiation therapy.. She now smokes a half a pack cigarette daily but he was smoking up to a pack and a half recently. Patient denies diabetes and he denies hypertension. Past Medical History Cardiac Medical History: Denies: Coronary Artery Disease, Myocardial Infarction, Hypertension, Pulmonary Embolism Pulmonary Medical History: Reports: Pneumonia - Pneumonia once as a child Denies: Asthma, Bronchitis, Chronic Obstructive Pulmonary Disease (COPD), Respiratory Failure, Sleep Apnea, Tuberculosis Neurological Medical History: Denies: Seizures Malignancy Medical History: Denies: Lung Cancer GI Medical History: Denies: Crohn's Disease, Gastroesophageal Reflux Disease, Hiatal Hernia Musculoskeltal Medical History: Denies: Arthritis Hematology: Denies: Anemia Past Surgical History Past Surgical History: Reports: Other - Transanal excision of a rectal tumor Denies: Appendectomy, Cholecystectomy, Colostomy, Coronary Artery Bypass Graft, Gastric Bypass Surgery, Herniorrhaphy, Pacemaker, Tonsillectomy Social History Smoking Status: Current Every Day Smoker Frequency of Alcohol Use: Heavy Hx Recreational Drug Use: No Drugs: None Hx Prescription Drug Abuse: No - Advance Directive Resuscitation Status: Full Code Family History Family History: Reviewed & Not Pertinent Parental Family History Reviewed: No Children Family History Reviewed: No Sibling(s) Family History Reviewed.: No Medication/Allergy Home Medications: Aspirin [Aspirin 81 mg Chewable Tablet] 81 mg PO DAILY 03/24/19 Diphenoxylate HCl/Atrop Sulf [Lomotil 2.5 mg Tablet] 5 mg PO BID 03/24/19 Ferrous Sulfate [Iron] 325 mg PO DAILY 03/24/19 Allergies/Adverse Reactions: No Known Allergies Allergy (Verified 03/24/19 10:50) Review of Systems Constitutional: PRESENT: weakness Nose, Mouth, and Throat: PRESENT: as per HPI Cardiovascular: ABSENT: chest pain, dyspnea on exertion, edema, orthropnea, palpitations Respiratory: ABSENT: cough, hemoptysis Gastrointestinal: ABSENT: abdominal pain, constipation, diarrhea, hematemesis, hematochezia, nausea, vomiting Neurological: PRESENT: abnormal gait, abnormal speech, lack of coordination, numbness, paresthesias, weakness Psychiatric: ABSENT: anxiety, depression, homidical ideation, suicidal ideation Physical Exam Vital Signs: Temp Pulse Resp BP Pulse Ox 98.1 F 84 16 128/83 H 97 03/24/19 09:33 03/24/19 13:12 03/24/19 13:12 03/24/19 13:12 03/24/19 13:12 Intake & Output 03/23/19 03/24/19 03/25/19 06:59 06:59 06:59 Weight 62.5 kg General appearance: PRESENT: no acute distress Respiratory exam: PRESENT: clear to auscultation barrera. ABSENT: rales, rhonchi, wheezes Cardiovascular exam: PRESENT: RRR. ABSENT: diastolic murmur, rubs, systolic murmur Neurological exam: PRESENT: alert, awake, oriented to person, oriented to place, oriented to time, oriented to situation, CN II-XII grossly intact, other - Patient has no focal deficits. No drift with his exam, but alternating moveme nts are intact, no facial weakness, cognos architect are strong and equal. ABSENT: motor sensory deficit Results Laboratory Results: 03/24/19 10:02 03/24/19 10:02 03/24/19 03/24/19 03/24/19 10:02 10:02 10:55 WBC 7.9 RBC 4.65 Hgb 15.4 Hct 45.1 MCV 97 MCH 33.1 MCHC 34.1 RDW 13.3 Plt Count 248 Seg Neutrophils % 71.3 Sodium 140.7 Potassium 4.7 Chloride 103 Carbon Dioxide 30 Anion Gap 8 BUN 11 Creatinine 0.93 Est GFR ( Amer) > 60 Glucose 104 Calcium 9.8 Total Bilirubin 0.6 AST 21 Alkaline Phosphatase 80 Total Protein 7.4 Albumin 4.2 Urine Color YELLOW Urine Appearance CLEAR Urine pH 6.0 Ur Specific [place] 1.005 Urine Protein NEGATIVE Urine Glucose (UA) NEGATIVE Urine Ketones NEGATIVE Urine Blood NEGATIVE Urine Nitrite NEGATIVE Ur Leukocyte Esterase NEGATIVE Urine WBC (Auto) 0 03/24/19 10:02 Troponin I < 0.012 Impressions: Head CT 03/24/19 09:47 IMPRESSION: Old left orbital floor fracture repair, intact. No acute intracranial findings. EVIDENCE OF ACUTE STROKE: NO. Chest X-Ray 03/24/19 09:48 IMPRESSION: Biapical pleural-parenchymal scarring with mild upper lobe hype rinflation. No acute infiltrates. Head MRI 03/24/19 12:03 IMPRESSION: Diffusion-weighted images are positive for a small acute nonhemorrhagic infarct in the left posterior limb internal capsule/lateral thalamus on axial image 15. EVIDENCE OF ACUTE STROKE: Yes. Assessment and Plan - Diagnosis (1) Colon cancer Is this a current diagnosis for this admission?: Yes (2) Tobacco abuse Is this a current diagnosis for this admission?: Yes (3) Ischemic stroke Is this a current diagnosis for this admission?: Yes (4) Cerebral arteriosclerosis with history of previous cerebrovascular accident Is this a current diagnosis for this admission?: Yes - Plan Summary Summary: 03/24/2019 Patient is already had a thorough outpatient work-up. Today's MRI scan showed a small acute nonhemorrhagic infarct in the left posterior limb internal capsule, lateral thalamic region. CBC is normal, chemistry normal, urinalysis normal, CT head scan shows no acute infarct. Patient is going to call his primary care provider and be worked up for hyperlipidemia, hypertension, smoking cessation. Patient is going to call his neurologist in follow-up turning continuing the Plavix which I have written for today 75 mg, 1 tablet daily, dispense 30 I told patient and his to return to the emergency room for any worsening of symptoms any severe headache any nausea any vomiting. No work until March 27. She is medically stable to discharge from the emergency room. - Time Time Spent with patient: 35 or more minutes
--- NOTE | 2019-03-24 15:07 | EKG REPORT ---
SEVERITY:- NORMAL ECG - SINUS RHYTHM : Confirmed by: Rosy Hennessy MD 24-Mar-2019 15:06:56
[2019-03-24 15:12] VITALS: BP 140/68
== END 2019-03-24 15:12 | disposition home or self-care (01) ==
LOC: ER 09:28 → UNDOADMOB 12:08 → EH 12:08 → ER 15:12
DX: I63.9 Cerebral infarction, unspecified (principal); C18.9 Malignant neoplasm of colon, unspecified; R20.0 Anesthesia of skin; M62.81 Muscle weakness (generalized); R29.702 NIHSS score 2; F17.200 Nicotine dependence, unspecified, uncomplicated
CPT/HCPCS: 36415; 70450; 70551; 71046; 80053; 81001; 84484; 85025; 93005; 93010; 99284